=== PATIENT | male | born 1955 | race Caucasian/White ===

== ENCOUNTER 2016-05-27 00:38 | Inpatient (IN) | payer BC ==
[~2016-05-27] VITALS: Ht 180.3 cm; Wt 91.0 kg
[2016-05-27 01:19] VITALS: BP 156/89; PULSE 90; TEMP 36.5; Ht 180.3 cm; Wt 91.0 kg
[2016-05-27] MEDS ORDERED: ONDANSETRON INJ 2 MG/ML 2 ML VIAL IV PRN (01:45)
[2016-05-27] MEDS ORDERED: MELO7.5T5 PO (01:52)
[2016-05-27] MEDS ORDERED: SODIUM CHLORIDE 0.9% 1000ML 1,000 ML IV SCH (02:00)
[2016-05-27] MEDS ORDERED: PATIENT'S ALLERGY INFO NEEDS ENTERED SCH (02:30)
--- NOTE | 2016-05-27 04:10 | History and Physical ---
History & Physical Date & Time of Service: May 27, 2016 at 04:04 Chief Complaint: Biliary Obstrucion Primary Care Physician: Daniel Conn D.O. History of Present Illness Source: patient Transfer from [facility] - biliary obstruction 61 y/o M Hx osteoarthritis only. Developed sharp epigastric pain which progressed over 2 days prompting him to visit the ER. He denies N/V od diarrhea. A CT was obtained which was consistent with biliary obstruction and the pt was transferred to [facility] for evaluation by a Feed Crusher. At the time of arrival he has intermittent abdominal pain and denies additional symptoms. Labs were notable for LFT and bilirubin elevation. 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 Social History Smoking Status: Former Smoker Allergies Coded Allergies: No Known Allergies (Unverified , 05/27/16) Home Medications Scheduled Meloxicam (Mobic), 7.5 MG PO BID Review of Systems Constitutional: No chills, No fever, No sweats Eyes: No eye pain, No worsening of vision ENT: No hearing loss, No nasal symptoms, No unusual epistaxis Respiratory: No cough, No sputum, No wheezing Cardiovascular: No PND, No chest pain, No orthopnea Abdomen: + nausea, + pain, No constipation, No diarrhea, No vomiting Musculoskeletal: + problem reported (chronic joint/muscle pain) Genitourinary - Male: No dysuria, No hematuria, No urinary frequency, No urinary urgency Neurologic: No memory loss, No paralysis, No weakness Psychiatric: No depression symptoms Endocrine: No fatigue Hematologic / Lymphatic: No abnormal bleeding/bruising Integumentary: No rash Allergic / Immunologic: No environmental allergies Physical Exam Vital Signs Date Time Temp Pulse Resp B/P Pulse Ox O2 Delivery O2 Flow Rate FiO2 05/27/16 01:19 36.5 90 18 156/89 Room Air 05/27/16 00:55 Room Air General Appearance: WD/WN, no apparent distress, + pertinent finding (Pleasant middle aged male - no distress) Head: normocephalic, atraumatic Eyes: normal inspection, PERRL, EOMI ENT: normal ENT inspection, pharynx normal Neck: supple, no adenopathy, thyroid normal, no JVD Respiratory/Chest: chest non-tender, lungs clear, normal breath sounds, no respiratory distress, no accessory muscle use Cardiovascular: regular rate, rhythm, no edema, no gallop, no JVD, no murmur, normal peripheral pulses Abdomen/GI: + pertinent finding (Tenderness and guarding RUG/epigastrium) Back: normal inspection, no CVA tenderness Extremities/Musculoskelatal: normal inspection, no calf tenderness, normal capillary refill Neurologic/Psych: staff field engineer II-XII nml as tested, no motor/sensory deficits, alert Skin: normal color, warm/dry, no rash Diagnostics Laboratory Results Results Past 24 Hours Test 05/27/16 01:42 Range/Units Tbili 3.8 Dbili 2.8 AST 515 ALT 607 AP 202 CBC/BMP WNL Diagnostic Radiology CT abdomen 1. Distended gallbladder 2. Dilated CBD 7mm, dilated hepatic duct 12mm 3.Two focal areas of wall thickening - mid-sigmoid - possible early diverticulitis 4. Scattered low-density areas w/in liver - likely cysts Impression Assessment and Plan 61 y/o M Hx osteoarthritis only. Developed sharp epigastric pain which progressed over 2 days prompting him to visit the ER. He denies N/V od diarrhea. A CT was obtained which was consistent with biliary obstruction and the pt was transferred to [facility] for evaluation by a Feed Crusher. At the time of arrival he has intermittent abdominal pain and denies additional symptoms. Labs were notable for LFT and bilirubin elevation. 1) Biliary obstruction - GI consulted - NPO - pain control as needed - IVF 2) Osteoarthritis - takes only Meloxicam which has been held Full code - SCDs pending GI eval Total time for this admit including review of labs/meds/imaging - discussion with attending at [facility], pt and - 35 min Level of Care Med/Surg Advanced Directives Existing Living Will: No Existing Power of Program Advisor: No Resuscitation Status FULL RESUSCITATION VTE Prophylaxis VTE Risk Assessment Done? Y/N: Yes Risk Level: Moderate Given or contraindicated: SCD's
[2016-05-27] MEDS: D5NSS + 20MEQ KCL 1,000 ML IV SCH ×3 (04:49→23:45)
[2016-05-27] MEDS: MoRPHine SULFATE 2 MG/ML CARP IV PRN ×4 (06:05→21:23)
[2016-05-27 06:55] VITALS: BP 134/70; PULSE 78; TEMP 36.7; O2SAT 94
[2016-05-27 07:23] VITALS: BP 111/72; PULSE 73; TEMP 36.6; O2SAT 95
[2016-05-27 07:25] LABS: BUN/CREATININE RATIO 12.1 (10-20); CALCIUM 8.4 mg/dl (8.5-10.1); CREATININE 0.97 mg/dl (0.60-1.40); MAGNESIUM 2.2 mg/dl (1.8-2.4); POTASSIUM 3.5 mmol/L (3.5-5.1)
[2016-05-27] MEDS ORDERED: INFLUENZA VIRUS QUAD VACCINE 0.5 ML SYR IM. ONE (08:00)
[2016-05-27] MEDS ORDERED: INFLUENZA ADMINISTRATION CHARGE ONE (08:00)
[2016-05-27 09:10] LABS: ACT87 HEP C IGG SCREEN** NEG (NEG)
[2016-05-27 12:13] LABS: AMYLASE 39 U/L (25-115)
--- NOTE | 2016-05-27 14:51 | GASTROINTESTINAL CONSULTATION ---
DATE OF CONSULTATION: 05/27/2016 DATE OF CONSULTATION: 05/27/2016. REFERRED BY: Dr. Harris. I was asked by Dr. Harris to consult on this gentleman for evaluation of abdominal pain and possible biliary obstruction. HISTORY OF PRESENT ILLNESS: The patient is a 62-year-old who for about 2 days has been experiencing severe epigastric discomfort. He thought it was reflux disease, but it did not get better. It is crampy and colicky in nature right in the epigastric area with no radiation. It is not associated with any dysphagia, nausea or vomiting. He feels it was brought on by a large meal. He has no prior episodes like this. He denies being told he had gallstones. He went to [facility] and they transferred him here because of elevated bilirubin. He had a CAT scan done as well at [place] which showed a dilated common bile duct. Currently, he is receiving morphine and feels that his pain has subsided, but not completely gone. He has noticed his urine has become dark. PAST MEDICAL HISTORY: I reviewed his medical records and past medical history and his past medical history is significant for osteoarthritis. He has had lumbar fusion and hardware in his back as well as nerve stimulator and right knee replacement. FAMILY HISTORY: He denies any family history of gastrointestinal disease. SOCIAL HISTORY: Significant for being a former smoker. ALLERGIES: He denies any drug allergies. OUTPATIENT MEDICATIONS: Include Mobic p.r.n. REVIEW OF SYSTEMS: As above, otherwise he denies any change in vision or hearing. He denies any icterus, though he has noticed some mild icteric jaundice. He denies any fevers, chills. Denies any productive cough, palpitations or chest pain. He has had no polyuria or polydipsia. He denies any rectal bleeding. He denies any seizure activity. He denies any joint swelling. He has had no change in mood or gait. He denies any easy bruising. PHYSICAL EXAMINATION: GENERAL: Reveals a gentleman lying in bed with his at bedside. VITAL SIGNS: Most recent temperature is 36.6, blood pressure is 111/72, pulse is 73. SKIN: Anicteric, but he has icteric sclerae. Mouth is clear of lesions. NECK: Supple, no adenopathy. CHEST: Clear. HEART: Regular rate and rhythm. ABDOMEN: Soft with good bowel sounds. He has some mild tenderness to deep palpation in the epigastric area, but no rebound and no masses, but good bowel sounds. EXTREMITIES: Warm, good distal pulses and no edema. NEUROLOGIC: He is grossly intact. Alert and oriented x3. LABORATORY DATA: Show a total bilirubin of 3.9 with a direct bilirubin of 2.7, AST of 295, ALT of 454, alkaline phosphatase of 178. Amylase and lipase are normal. IMPRESSION: A 61-year-old gentleman with biliary colic and objective data supporting this. It is reassuring that his amylase and lipase are normal, showing no evidence of pancreatitis. I think it is reasonable that he can have sips of liquids, but he should remain IV hydrated. At this point, it is unclear whether it would be safe to do an MRI since we do not know about his hardware in his back. He will need an ERCP. I do not perform them myself. This could most likely be done Sunday unless he becomes sick or shows evidence of cholangitis at that point he will need to be transferred to a center that does them, either [facility] or [place]. I have discussed this with the patient, the family and Dr. Harris. HITESH
[2016-05-27 15:41] VITALS: BP 119/74; PULSE 73; TEMP 36.4; O2SAT 92
[2016-05-27 16:00] VITALS: O2SAT 92
--- NOTE | 2016-05-27 20:02 | Hospitalist Progress Note ---
Hospitalist Progress Note Date of Service May 27, 2016. Subjective Pt evaluation today including: conversation w/ patient, conversation w/ family , physical exam, lab review, conversation w/ golf tournament consultant (GI), review of inpatient medication list PO Intake: NPO Pt admitted after midnight. Pt seen and examined, outside records from [facility] and old Records from [place] reviewed. Pt currently still with epigastric pain, no N/V/D. Did have a small amount of rectal bleeding this AM that was painless, no melena. LFTs still elevated about the same as at [place]. Question of his nerve stim implant and compatibility with MRI machine so no MRCP could be completed today. 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 No stones or pancreatitis seen on CT as per report. Constitutional: No fever Eyes: No problem reported ENT: No problem reported Respiratory: No shortness of breath Cardiovascular: No chest pain, No edema, No palpitations Abdomen: + GI bleeding, + pain, No constipation, No diarrhea, No nausea, No vomiting Musculoskeletal: + joint pain (chronic in fingers and thumbs, knees) Male : No problem reported Neurologic: No problem reported Psychiatric: No problem reported, No substance abuse Heme: No problem reported Endo: No problem reported Skin: + color change (jaundice) All Other Systems: Reviewed and Negative Objective Vital Signs Date Time Temp Pulse Resp B/P Pulse Ox O2 Delivery O2 Flow Rate FiO2 05/27/16 16:00 92 Room Air 05/27/16 15:41 36.4 73 18 119/74 92 Room Air 05/27/16 07:30 Room Air 05/27/16 07:23 36.6 73 17 111/72 95 Room Air 05/27/16 06:55 36.7 78 16 134/70 94 Room Air 05/27/16 01:19 36.5 90 18 156/89 Room Air 05/27/16 00:55 Room Air Physical Exam General Appearance: WD/WN, no apparent distress Eyes: + abnormal sclerae exam (icterus) ENT: hearing grossly normal, pharynx normal Neck: supple, no adenopathy, thyroid normal, no JVD, no carotid bruits, trachea midline Respiratory/Chest: lungs clear, normal breath sounds, no respiratory distress, no accessory muscle use Cardiovascular: regular rate, rhythm, no edema, no gallop, no JVD, no murmur Abdomen: normal bowel sounds, soft, + tenderness (in epigastric and RUQ region without guarding or rebound) Extremities: normal inspection, no pedal edema, no calf tenderness Neurologic/Psychiatric: alert, normal mood/affect, oriented x 3 Skin: warm/dry, no rash, + jaundice Lymphatic: no adenopathy Laboratory Results Last 24 Hours Test 05/27/16 05:52 05/27/16 05:58 Sodium Level 145 mmol/L Potassium Level 3.5 mmol/L Chloride Level 111 mmol/L Carbon Dioxide Level 28 mmol/L Anion Gap 6.0 mmol/L Blood Urea Nitrogen 12 mg/dl Creatinine 0.97 mg/dl Est Creatinine Clear Calc Drug Dose 89.9 ml/min Estimated GFR () 95.9 Estimated GFR (Non- 82.7 BUN/Creatinine Ratio 12.1 Random Glucose 103 mg/dl Calcium Level 8.4 mg/dl Magnesium Level 2.2 mg/dl Total Bilirubin 3.9 mg/dl Direct Bilirubin 2.7 mg/dl Aspartate Amino Transf (AST/SGOT) 295 U/L Alanine Aminotransferase (ALT/SGPT) 454 U/L Alkaline Phosphatase 178 U/L Total Protein 5.9 gm/dl Albumin 3.4 gm/dl Amylase Level 39 U/L Lipase 184 U/L Hepatitis C Antibody Screen NEG Hepatitis C Antibody NEG Assessment and Plan 61 y/o M Hx osteoarthritis, and lumbar fusion with nerve stimulator implant (no longer working as battery ). Developed sharp epigastric pain which progressed over 2 days prompting him to visit the ER. He denies N/V or diarrhea. A CT was obtained which was consistent with biliary obstruction and the pt was transferred to [facility] for evaluation by a Gas Fitter Helper. At the time of arrival he has intermittent abdominal pain and denies additional symptoms. Labs were notable for LFT and bilirubin elevation. 1) Biliary obstruction - CT abd/pel with CBD 7 mm and common hepatic duct dilated at 12 mm, no stones or cholecystitis, no pancreatitis, lipase and amylase normal but TBili 3.9 with high DBili, AST/ALT/ALK phos all elevated. Afebrile, no leukocytosis. GI consulted and recommend transfer out for ERCP if worsens through the weekend as not available this weekend, otherwise ERCP on Sunday -can take sips but continue IVFs -pain control as needed -follow LFTs daily -continue to track down records if possible on nerve stim so could possibly get MRCP -consider PUD as well given chronic Mobic use-ERCP will be helpful at assessing for this as well 2) Osteoarthritis - takes only Meloxicam which has been held Full code - SCDs
[2016-05-27 22:52] VITALS: BP 121/64; PULSE 72; TEMP 36.7; O2SAT 91
[2016-05-28] MEDS: MoRPHine SULFATE 2 MG/ML CARP IV PRN ×2 (07:40→12:54)
[2016-05-28 08:03] VITALS: BP 106/65; PULSE 65; TEMP 36.6; O2SAT 93
[2016-05-28 08:21] LABS: BASO % 0.2 %; BASO ABS # 0.01 K/uL (0-0.2); COMPLETE YES; EOS % 2.3 %; HEMATOCRIT 39.4 % (42-52); IG% 0.2 %; LYMPH % 14.2 %; LYMPH ABS # 0.79 K/uL (1.2-3.4); MEAN CELL VOLUME 88.9 fL (80-100); MEAN CORPUSCULAR HEMOGLOBIN 28.2 pg (25-34); MEAN CORPUSCULAR HGB CONC 31.7 g/dl (32-36); MEAN PLATELET VOLUME 10.1 fL (7.4-10.4); MONO % 11.3 %; NEUT % 71.8 %; PLATELET COUNT 171 K/uL (130-400); RED BLOOD COUNT 4.43 M/uL (4.7-6.1); WHITE BLOOD COUNT 5.58 K/uL (4.8-10.8)
[2016-05-28] MEDS: D5NSS + 20MEQ KCL 1,000 ML IV SCH ×2 (09:29→18:41)
[2016-05-28 09:31] LABS: BUN/CREATININE RATIO 14.5 (10-20); CALCIUM 8.2 mg/dl (8.5-10.1); CREATININE 0.69 mg/dl (0.60-1.40); POTASSIUM 4.1 mmol/L (3.5-5.1)
[2016-05-28 15:07] VITALS: BP 129/85; PULSE 63; TEMP 36.6; O2SAT 95
[2016-05-28 16:00] VITALS: O2SAT 95
--- NOTE | 2016-05-28 20:27 | Hospitalist Progress Note ---
Hospitalist Progress Note Date of Service May 28, 2016. Subjective Pt evaluation today including: conversation w/ patient, conversation w/ independent consultant (reviewed outside CT with Radiology on phone today, discussed case with GI Dr. Arellano and Dr. Miller) Abd pain is much better today but still present. He just took some morphine prior to me seein edda today. LFTs much improved. No more blood in stool. Constitutional: No fever Respiratory: No shortness of breath Cardiovascular: No chest pain Abdomen: + pain All Other Systems: Reviewed and Negative Objective Vital Signs Date Time Temp Pulse Resp B/P Pulse Ox O2 Delivery O2 Flow Rate FiO2 05/28/16 16:00 95 Room Air 05/28/16 15:07 36.6 63 18 129/85 95 Room Air 05/28/16 08:03 36.6 65 17 106/65 93 05/28/16 07:45 Room Air 05/27/16 23:45 Room Air 05/27/16 22:52 36.7 72 18 121/64 91 Room Air Physical Exam General Appearance: WD/WN, no apparent distress Eyes: normal inspection, sclerae normal Neck: trachea midline Respiratory/Chest: lungs clear, normal breath sounds, no respiratory distress, no accessory muscle use Cardiovascular: regular rate, rhythm, no edema, no murmur Abdomen: normal bowel sounds, soft, no organomegaly, + tenderness (minimal in RUQ w/p guarding or rebound) Extremities: non-tender, normal inspection, no pedal edema, no calf tenderness Neurologic/Psychiatric: alert, normal mood/affect, oriented x 3 Skin: normal color, warm/dry, no rash Laboratory Results Last 24 Hours Test 05/28/16 08:11 White Blood Count 5.58 K/uL Red Blood Count 4.43 M/uL Hemoglobin 12.5 g/dL Hematocrit 39.4 % Mean Corpuscular Volume 88.9 fL Mean Corpuscular Hemoglobin 28.2 pg Mean Corpuscular Hemoglobin Concent 31.7 g/dl Platelet Count 171 K/uL Mean Platelet Volume 10.1 fL Neutrophils (%) (Auto) 71.8 % Lymphocytes (%) (Auto) 14.2 % Monocytes (%) (Auto) 11.3 % Eosinophils (%) (Auto) 2.3 % Basophils (%) (Auto) 0.2 % Neutrophils # (Auto) 4.01 K/uL Lymphocytes # (Auto) 0.79 K/uL Monocytes # (Auto) 0.63 K/uL Eosinophils # (Auto) 0.13 K/uL Basophils # (Auto) 0.01 K/uL RDW Standard Deviation 46.7 fL RDW Coefficient of Variation 14.2 % Immature Granulocyte % (Auto) 0.2 % Immature Granulocyte # (Auto) 0.01 K/uL Sodium Level 146 mmol/L Potassium Level 4.1 mmol/L Chloride Level 115 mmol/L Carbon Dioxide Level 24 mmol/L Anion Gap 7.0 mmol/L Blood Urea Nitrogen 10 mg/dl Creatinine 0.69 mg/dl Est Creatinine Clear Calc Drug Dose 126.4 ml/min Estimated GFR () 117.1 Estimated GFR (Non- 101.0 BUN/Creatinine Ratio 14.5 Random Glucose 108 mg/dl Calcium Level 8.2 mg/dl Magnesium Level 2.0 mg/dl Total Bilirubin 0.9 mg/dl Direct Bilirubin 0.4 mg/dl Aspartate Amino Transf (AST/SGOT) 89 U/L Alanine Aminotransferase (ALT/SGPT) 279 U/L Alkaline Phosphatase 164 U/L Total Protein 5.4 gm/dl Albumin 3.0 gm/dl Amylase Level 39 U/L Lipase 125 U/L Assessment and Plan 61 y/o M Hx osteoarthritis, and lumbar fusion with nerve stimulator implant (no longer working as battery ). Developed sharp epigastric pain which progressed over 2 days prompting him to visit the ER. He denies N/V or diarrhea. A CT was obtained which was consistent with biliary obstruction and the pt was transferred to [facility] for evaluation by a Machine Heel Sprayer. At the time of arrival he has intermittent abdominal pain and denies additional symptoms. Labs were notable for LFT and bilirubin elevation. 1) Biliary obstruction - CT abd/pel with CBD 7 mm and common hepatic duct dilated at 12 mm as per outside report. Radiology here confirms CBD 10 mm dilated and possible tiny calcification adjacent to or in sphincter (possible stone passing), no cholecystitis, no pancreatitis, lipase and amylase normal but TBili 3.9 with high DBili, AST/ALT/ALK phos all elevated. Afebrile, no leukocytosis. Unable to get MRCP due to nerve stim in back of unknown make/model (unknown if MR compatible)-requested records from [facility] but operative report from 12 yrs ago not included. Most likely cholelithiasis/choledocholithiasis GI consulted and recommended possible ERCP on Sun with Dr. MILLER if can be add on case. But, if labs and clinical picture continue to improve, consider only repeating CT abd/pel on Sunday to see if dilatation is improved in ducts. Will await GI's recommendation on Sunday and keep NPO after midnight for ERCP just in case. LFTs trending downward and pain much improved. -can have clears today, NPO after midnight -pain control as needed -follow LFTs daily -continue to track down records if possible on nerve stim so could possibly get MRCP -consider PUD as well given chronic Mobic use-ERCP will be helpful at assessing for this as well 2) Osteoarthritis - takes only Meloxicam which has been held Full code - SCDs
[2016-05-28 23:45] VITALS: BP 156/85; PULSE 68; TEMP 36.4; O2SAT 94
--- NOTE | 2016-05-29 00:59 | GASTROINTESTINAL CONSULTATION ---
DATE OF CONSULTATION: 05/28/2016 TIME: 09:15 p.m. CHIEF COMPLAINT: Abnormal liver function tests, abnormal CT imaging, right upper quadrant epigastric pain. HISTORY OF PRESENT ILLNESS: I was contacted by Dr. Harris earlier this afternoon regarding this pleasant 61-year-old male who on while at work, experienced epigastric pain that was intense in nature. This was sudden onset and lingered throughout the day. He had tried some liquid antacids and acid blockers, but this incompletely relieved the symptoms. These symptoms continued on Sunday and throughout the day, and eventually became intolerant, and he presented to [facility] which is nearby his home. The patient denies any radiation to the back or into the shoulder. The foods that caused the pain to persist on Sunday was a BLT sandwich. The patient has no prior history or knowledge of gallstone, history of pancreatitis, peptic ulcer disease and takes Mobic for chronic skeletomuscular pain. The patient also has had spinal rods and a nerve stimulator unit that was placed about 12 years ago. The specific type, brand and model number is unknown regarding MR compatibility. The patient continued with pain yesterday, Sunday; however, today his pain began to resolve. PAST MEDICAL HISTORY: Significant for osteoarthritis. There was no nausea or vomiting. He also had a right knee replacement, lumbar fusion with hardware replacement. FAMILY HISTORY: Noncontributory. SOCIAL HISTORY: The patient himself denies tobacco or alcohol usage, works in a [employer] plant. The patient did smoke in the past. He is . HOME MEDICATIONS: Include only meloxicam (Mobic 7.5 mg twice daily). ALLERGIES: He has no known drug allergies. REVIEW OF SYSTEMS: Otherwise noncontributory based on 14-point exam. The patient denies any nausea, vomiting, hematemesis, coffee-ground emesis, melena or bright red blood per rectum. PHYSICAL EXAMINATION: VITAL SIGNS: On admission, was afebrile at 36.5, BP 156/89, heart rate 90, respirations 18. GENERAL: At the present time, the patient is awake, alert and oriented x3 and resting comfortably in bed. He has had some liquid throughout the day which was not bothersome to him. Essentially, his pain has completely resolved and he is back to baseline. Importantly, there was no description of recent weight loss and the patient has no prior history of any similar attacks of pain that he can recall. HEENT: Sclerae are anicteric. Oral mucosa moist. HEART: Normal S1, S2. LUNGS: Clear to auscultation. ABDOMEN: Soft, nontender, nondistended with good bowel sounds. No rebound or guarding. I do not appreciate hepatosplenomegaly. EXTREMITIES: Without clubbing, cyanosis or edema. RECTAL: Deferred at this time. LABORATORY STUDIES: At the present time show white count today at 8:00 this morning of 5.58, hemoglobin 12.5, hematocrit 39.4, MCV 89, platelets 171,000. Serum chemistries this morning at 5:52 a.m., BUN and creatinine were normal at 12 and 0.9, potassium 3.5, random glucose 103, magnesium 2.2. His total bilirubin this morning was 3.9, direct 2.7, AST 295, ALT 454, alk phos 178, total protein 5.9, albumin 3.4. Amylase and lipase this morning were 39 and 184 respectively. The prior labs were from 5:52 a.m. on May 27. Today's labs show resolving liver tests with a total bilirubin of 0.9, direct of 0.4, AST is down to 89, ALT to 279, alk phos slightly down at 164. Amylase and lipase remain normal at 39 and 125. The imaging study report had suggested that there were dilated intrahepatic ducts and common hepatic duct, although no obvious filling defect or masses were seen. I did speak with Dr. Harris regarding this patient's request and asked them to review the actual films with radiology and the unofficial report communicated to me through Dr. Harris was that the common bile duct was 10 mm with an (intact gallbladder). There was no definite mass or stones in the duct. There was evidence of mild intrahepatic dilation and a 2-3 mm calcification that could either represent a stone in or adjacent to the sphincter with ERCP or perhaps EUS recommended. IMPRESSION: Mr Reagan with acute onset since of epigastric pain that persisted through Sunday. Today, the pain is nearly resolved and yesterday's liver function tests that were elevated are now trending downward. Review of the outside CT scan by radiology suggested a prominent extrahepatic common bile duct of 10 mm and perhaps a calcified filling defect either distally or near the region of the sphincter. There is no chronic weight loss and the fact that this was accompanied by a sudden onset of pain without fever or chills and is resolving would make the passage of a stone more likely (symptomatic choledocholithiasis or sludge). Unfortunately, with the patient's nerve stimulator unit in place, without its brand and model number, the MR compatibility is not known and therefore MRI may not be possible. At this point, we would observe patient's symptoms overnight and follow with labs tomorrow. If he continues to do well, then it may be advisable to first approach with an endoscopic ultrasound to see if there are any filling defects appreciated in the biliary system and gallbladder. If so, then endoscopic retrograde cholangiopancreatography would be helpful. I have attempted to review the actual CT disc, however this will not open on the current computer and have asked radiology to download it and give a formal interpretation of the study. If there appears to be a filling defect on the CT imaging, the possibilities are that the stone may have passed into the duodenum in the interim given the patient's resolution of pain and resolving liver function tests or may have moved back up the bile duct in a nonobstructive fashion and therefore, interrogation of the biliary tree, I believe is still prudent. We will also look to see availability for endoscopic exams tomorrow for Mr. Reagan. However, this unfortunately will not be available until the late afternoon or early evening for me. All questions are answered. Thank you for allowing me to participate in this pleasant gentleman's care. HITESH
[2016-05-29 05:48] LABS: BASO % 0.2 %; BASO ABS # 0.01 K/uL (0-0.2); COMPLETE YES; EOS % 3.1 %; HEMATOCRIT 39.1 % (42-52); LYMPH % 18.8 %; LYMPH ABS # 1.15 K/uL (1.2-3.4); MEAN CELL VOLUME 87.9 fL (80-100); MEAN CORPUSCULAR HEMOGLOBIN 28.5 pg (25-34); MEAN CORPUSCULAR HGB CONC 32.5 g/dl (32-36); MEAN PLATELET VOLUME 10.8 fL (7.4-10.4); MONO % 11.9 %; PLATELET COUNT 181 K/uL (130-400); RED BLOOD COUNT 4.45 M/uL (4.7-6.1); WHITE BLOOD COUNT 6.11 K/uL (4.8-10.8)
[2016-05-29 06:17] LABS: BUN/CREATININE RATIO 9.1 (10-20); CALCIUM 8.1 mg/dl (8.5-10.1); CREATININE 0.7 mg/dl (0.60-1.40); MAGNESIUM 1.8 mg/dl (1.8-2.4); POTASSIUM 3.8 mmol/L (3.5-5.1)
[2016-05-29 07:22] VITALS: BP 167/92; PULSE 82; TEMP 36.5; O2SAT 94
[2016-05-29 07:40] VITALS: BP 145/93
[2016-05-29] MEDS: SODIUM CHLOR 0.45% + 20MEQ KCL 1,000 ML IV SCH ×2 (10:13→22:22)
--- NOTE | 2016-05-29 13:17 | Hospitalist Progress Note ---
Hospitalist Progress Note Date of Service May 29, 2016. (Marianela Sumner PA-C) Subjective Pt evaluation today including: conversation w/ patient, conversation w/ family , physical exam, chart review, lab review, review of studies, review of inpatient medication list Patient currently denies any abdominal pain. He has been pain-free over the last day. Denies any nausea. One small running bowel movement this morning. No fever or chills. Additional Comments: 6 system review negative. Please see pertinent positives in the history of present illness section. (Marianela Sumner PA-C) Objective Vital Signs Date Time Temp Pulse Resp B/P Pulse Ox O2 Delivery O2 Flow Rate FiO2 05/29/16 07:45 Room Air 05/29/16 07:40 145/93 05/29/16 07:22 36.5 82 16 167/92 94 Room Air 05/28/16 23:45 36.4 68 18 156/85 94 Room Air 05/28/16 23:35 Room Air 05/28/16 16:00 95 Room Air 05/28/16 15:07 36.6 63 18 129/85 95 Room Air (Marianela Sumner PA-C) Physical Exam General Appearance: no apparent distress Eyes: EOMI Neck: no JVD Respiratory/Chest: lungs clear Cardiovascular: regular rate, rhythm Abdomen: normal bowel sounds, non tender, soft Extremities: non-tender, no pedal edema Neurologic/Psychiatric: no motor/sensory deficits, oriented x 3 Skin: warm/dry (Marianela Sumner PA-C) Laboratory Results 05/29/16 05:38 Red Blood Count 4.45, Mean Corpuscular Volume 87.9, Mean Corpuscular Hemoglobin 28.5, Mean Corpuscular Hemoglobin Concent 32.5, Mean Platelet Volume 10.8, Neutrophils (%) (Auto) 66.0, Lymphocytes (%) (Auto) 18.8, Monocytes (%) (Auto) 11.9, Eosinophils (%) (Auto) 3.1, Basophils (%) (Auto) 0.2, Neutrophils # (Auto ) 4.03, Lymphocytes # (Auto) 1.15, Monocytes # (Auto) 0.73, Eosinophils # (Auto ) 0.19, Basophils # (Auto) 0.01 05/29/16 05:38 Test 05/29/16 05:38 White Blood Count 6.11 K/uL (4.8-10.8) Red Blood Count 4.45 M/uL (4.7-6.1) Hemoglobin 12.7 g/dL (14.0-18.0) Hematocrit 39.1 % (42-52) Mean Corpuscular Volume 87.9 fL (80-100) Mean Corpuscular Hemoglobin 28.5 pg (25-34) Mean Corpuscular Hemoglobin Concent 32.5 g/dl (32-36) Platelet Count 181 K/uL (130-400) Mean Platelet Volume 10.8 fL (7.4-10.4) Neutrophils (%) (Auto) 66.0 % Lymphocytes (%) (Auto) 18.8 % Monocytes (%) (Auto) 11.9 % Eosinophils (%) (Auto) 3.1 % Basophils (%) (Auto) 0.2 % Neutrophils # (Auto) 4.03 K/uL (1.4-6.5) Lymphocytes # (Auto) 1.15 K/uL (1.2-3.4) Monocytes # (Auto) 0.73 K/uL (0.11-0.59) Eosinophils # (Auto) 0.19 K/uL (0-0.5) Basophils # (Auto) 0.01 K/uL (0-0.2) RDW Standard Deviation 44.3 fL (36.4-46.3) RDW Coefficient of Variation 13.7 % (11.5-14.5) Immature Granulocyte % (Auto) 0.0 % Immature Granulocyte # (Auto) 0.00 K/uL (0.00-0.02) Anion Gap 8.0 mmol/L (3-11) Est Creatinine Clear Calc Drug Dose 124.6 ml/min Estimated GFR () 116.4 Estimated GFR (Non- 100.4 BUN/Creatinine Ratio 9.1 (10-20) Calcium Level 8.1 mg/dl (8.5-10.1) Magnesium Level 1.8 mg/dl (1.8-2.4) Total Bilirubin 0.7 mg/dl (0.2-1) Direct Bilirubin 0.3 mg/dl (0-0.2) Aspartate Amino Transf (AST/SGOT) 54 U/L (15-37) Alanine Aminotransferase (ALT/SGPT) 218 U/L (12-78) Alkaline Phosphatase 149 U/L (45-117) Total Protein 5.4 gm/dl (6.4-8.2) Albumin 2.9 gm/dl (3.4-5.0) Last 24 Hours Test 05/29/16 05:38 White Blood Count 6.11 K/uL Red Blood Count 4.45 M/uL Hemoglobin 12.7 g/dL Hematocrit 39.1 % Mean Corpuscular Volume 87.9 fL Mean Corpuscular Hemoglobin 28.5 pg Mean Corpuscular Hemoglobin Concent 32.5 g/dl Platelet Count 181 K/uL Mean Platelet Volume 10.8 fL Neutrophils (%) (Auto) 66.0 % Lymphocytes (%) (Auto) 18.8 % Monocytes (%) (Auto) 11.9 % Eosinophils (%) (Auto) 3.1 % Basophils (%) (Auto) 0.2 % Neutrophils # (Auto) 4.03 K/uL Lymphocytes # (Auto) 1.15 K/uL Monocytes # (Auto) 0.73 K/uL Eosinophils # (Auto) 0.19 K/uL Basophils # (Auto) 0.01 K/uL RDW Standard Deviation 44.3 fL RDW Coefficient of Variation 13.7 % Immature Granulocyte % (Auto) 0.0 % Immature Granulocyte # (Auto) 0.00 K/uL Sodium Level 147 mmol/L Potassium Level 3.8 mmol/L Chloride Level 113 mmol/L Carbon Dioxide Level 26 mmol/L Anion Gap 8.0 mmol/L Blood Urea Nitrogen 6 mg/dl Creatinine 0.70 mg/dl Est Creatinine Clear Calc Drug Dose 124.6 ml/min Estimated GFR () 116.4 Estimated GFR (Non- 100.4 BUN/Creatinine Ratio 9.1 Random Glucose 94 mg/dl Calcium Level 8.1 mg/dl Magnesium Level 1.8 mg/dl Total Bilirubin 0.7 mg/dl Direct Bilirubin 0.3 mg/dl Aspartate Amino Transf (AST/SGOT) 54 U/L Alanine Aminotransferase (ALT/SGPT) 218 U/L Alkaline Phosphatase 149 U/L Total Protein 5.4 gm/dl Albumin 2.9 gm/dl (Marianela Sumner, PA-C) Assessment and Plan 61 y/o M Hx osteoarthritis, and lumbar fusion with nerve stimulator implant (no longer working as battery ). Developed sharp epigastric pain which progressed over 2 days prompting him to visit the ER. He denies N/V or diarrhea. A CT was obtained which was consistent with biliary obstruction and the pt was transferred to [facility] for evaluation by a [employer]airer. At the time of arrival he has intermittent abdominal pain and denies additional symptoms. Labs were notable for LFT and bilirubin elevation. Biliary obstruction - CT abd/pel with CBD 7 mm and common hepatic duct dilated at 12 mm as per outside report. Radiology here confirms CBD 10 mm dilated and possible tiny calcification adjacent to or in sphincter (possible stone passing) , no cholecystitis, no pancreatitis--> LFTs continue to improve Unable to get MRCP due to nerve stim in back of unknown make/model (unknown if MR compatible)-requested records from [facility] but operative report from 12 yrs ago not included. Most likely cholelithiasis/choledocholithiasis EUS +/- ERCP at [address] Clemens Osteoarthritis - takes only Meloxicam which has been held Mild hypernatremia -Change IV fluids to NS + 20 mEq KCl @ 100 cc/hr DVT prophylaxis -TEDS, SCDs Full code (Marianela Sumner, PAArnoldoC) PA Physician Supervision Note: I interviewed and examined the patient. Discussed with Marianela Sumner PAC and agree with findings and plan as documented in the note. Any exceptions or clarifications are listed here: None Pt is awaiting ercp eus, is now mostly symptom free with improved lab studies vss abd is soft and non tender studies to determine cause of dilated CBD Documented By: Shon Han (Shon Han M.D.)
[2016-05-29 16:00] VITALS: BP 147/83; PULSE 61; TEMP 36.7; O2SAT 95
[2016-05-29] MEDS ORDERED: GLYCOPYRROLATE INJ 0.2 MG/ML VIAL ONE (17:35)
[2016-05-29] MEDS ORDERED: PHENYLEPHRINE HCL INJ 10 MG/ML VIAL ONE (17:35)
[2016-05-29] MEDS ORDERED: ROCURONIUM BROMIDE 10 MG/ML 5 ML VIAL ONE (17:35)
[2016-05-29] MEDS ORDERED: DEXAMETHASONE SOD INJ 4 MG/ML VIAL ONE (17:35)
[2016-05-29] MEDS ORDERED: ONDANSETRON INJ 2 MG/ML 2 ML VIAL ONE (17:35)
[2016-05-29] MEDS ORDERED: SUCCINYLCHOLINE CHLORIDE 20 MG/ML 10 ML VIAL IV ONE (17:35)
[2016-05-29] MEDS ORDERED: MIDAZOLAM HCL 1 MG/ML 2ML VIAL ONE (17:35)
[2016-05-29] MEDS ORDERED: LIDOCAINE HCL 2% 2 ML VIAL (20MG/ML) ONE (17:35)
[2016-05-29] MEDS ORDERED: NEOSTIGMINE METHYLSULFATE 5 MG/5 ML SYR ONE (17:35)
[2016-05-29] MEDS ORDERED: FENTANYL CITRATE INJ 50 MCG/1 ML 2 ML VIAL ONE (17:35)
[2016-05-29] MEDS ORDERED: PROPOFOL IV EMULSION 10 MG/ML 20 ML VIAL IV ONE (17:35)
[2016-05-29] MEDS ORDERED: EpHEDrine SULFATE INJ 50 MG/ML AMP ONE (17:35)
--- NOTE | 2016-05-29 17:56 | History & Physical Bridge Note ---
H&P Re-Evaluation Bridge Note: I have examined the patient, reviewed the History & Physical and in the interval since the performance of the History & Physical I have noted the following changes of clinical significance: No changes noted Consent obtaine for EUS and ERCP after risks benefits and alternatives discussed with patient. Pt agrees to proceed. Pysical exam benign and unchanged from last evening @ 9:00 PM. Abd soft NT/ND + BS
[2016-05-29] MEDS ORDERED: INDOMETHACIN 50 MG SUPP PR ONE (19:34)
--- NOTE | 2016-05-29 21:24 | DIAGNOSTIC IMAGING REPORT ---
KUB during ERCP CLINICAL HISTORY: ERCP COMPARISON STUDY: CT scan dated 05/26/2016 FLUOROSCOPY TIME: 1061 seconds. FINDINGS: A single fluoroscopic spot images provided for interpretation. This reveals postsurgical changes within the lumbar spine. There is a right upper quadrant stent. The orientation favors a pancreaticoduodenal stent although it is conceivable this represents a biliary enteric stent. IMPRESSION: A right upper quadrant stent is visualized. Electronically signed by: Thiago Esposito M.D. 05/29/2016 9:23 PM Dictated Date/Time: 05/29/2016 9:20 PM
--- NOTE | 2016-05-29 21:29 | GI REPORT ---
Procedure Date: 05/29/2016 6:05 PM THIS REPORT HAS BEEN AMENDED Addendum Number: 1 Addendum Date: 05/29/2016 10:00:44 PM EUS insert/withdrawal time 18:19 to 18:55. Procedure: Upper EUS Indications: Common bile duct dilation (acquired) seen on CT scan Medicines: General Anesthesia Complications: No immediate complications. Estimated blood loss: None. Estimated Blood Loss: Estimated blood loss: none. Procedure: Pre-Anesthesia Assessment: - Prior to the procedure, a History and Physical was performed, and patient medications and allergies were reviewed. The patient's tolerance of previous anesthesia was also reviewed. The risks and benefits of the procedure and the sedation options and risks were discussed with the patient. All questions were answered, and informed consent was obtained. Prior Anticoagulants: The patient has taken no previous anticoagulant or antiplatelet agents. ASA Grade Assessment: II - A patient with mild systemic disease. After reviewing the risks and benefits, the patient was deemed in satisfactory condition to undergo the procedure. After obtaining informed consent, the endoscope was passed under direct vision. Throughout the procedure, the patient's blood pressure, pulse, and oxygen saturations were monitored continuously. The Endosonoscope was introduced through the mouth, and advanced to the area of papilla. The Endosonoscope was introduced through the mouth, and advanced to the second part of duodenum. The upper EUS was accomplished without difficulty. The patient tolerated the procedure well. Findings: Endoscopic Finding : The examined esophagus was normal. Patchy mildly erythematous mucosa without bleeding was found in the gastric antrum. Patchy moderately erythematous mucosa without active bleeding and with no stigmata of bleeding was found in the duodenal bulb and in the second part of the duodenum. Localized moderate inflammation characterized by congestion (edema) and erythema was found in the ampulla. Endosonographic Finding : The esophagus, stomach and duodenum and adjacent structures were visualized endosonographically. There was no sign of significant endosonographic abnormality in the esophagus. No pathologic lymphadenopathy was identified. Endosonographic images of the stomach were unremarkable. No pathologic lymphadenopathy was identified. There was no sign of significant endosonographic abnormality in the ampulla, in the duodenal bulb and in the second portion of the duodenum. No pathologic lymphadenopathy was identified. Four stones were visualized endosonographically in the gallbladder. The stones were oval. They were hyperechoic and characterized by shadowing. Moderate hyperechoic material consistent with sludge was visualized endosonographically in the common bile duct and in the middle third of the main bile duct. he bile duct was 13 mm in diameter. There was no sign of significant endosonographic abnormality in the left lobe of the liver. Homogeneous parenchyma and no pathologic lymphadenopathy were identified. There was no sign of significant endosonographic abnormality in the pancreatic head, in the pancreatic body, in the pancreatic tail and in the main pancreatic duct. The pancreatic duct measured up to 2 mm in diameter. No pathologic lymphadenopathy, no masses, the pancreatic duct was regular in contour. Impression: - Normal esophagus. - Erythematous mucosa in the antrum. - Erythematous duodenopathy. - Acute duodenitis. - There was no sign of significant pathology in the esophagus. - Endosonographic images of the stomach were unremarkable. - There was no sign of significant pathology in the ampulla, in the duodenal bulb and in the second portion of the duodenum. - Four stones were visualized endosonographically in the gallbladder. - Hyperechoic material consistent with sludge was visualized endosonographically in the common bile duct and in the middle third of the main bile duct. - There was no evidence of significant pathology in the left lobe of the liver. - There was no sign of significant pathology in the pancreatic head, in the pancreatic body, in the pancreatic tail and in the main pancreatic duct. - No specimens collected. Recommendation: - Perform an ERCP today. MD Rafi Zavaleta MD 05/29/2016 9:29:07 PM This report has been signed electronically. Note Initiated On: 05/29/2016 6:05 PM I attest to the content of the Intraoperative Record and orders documented therein, exceptions below MD Rafi Zavaleta MD 05/29/2016 10:01:18 PM This report has been signed electronically.
[2016-05-29] MEDS ORDERED: HYDROmorphone INJ 1 MG/ML SYR IV PRN (21:30)
[2016-05-29] MEDS ORDERED: ONDANSETRON INJ 2 MG/ML 2 ML VIAL IV PRN (21:30)
[2016-05-29] MEDS ORDERED: FENTANYL CITRATE INJ 50 MCG/1 ML 2 ML VIAL IV PRN (21:30)
[2016-05-29] MEDS ORDERED: PROMETHAZINE HCL INJ 6.25 MG in SODIUM CHLORIDE 0.9% 50ML 50 ML IV PRN (21:30)
[2016-05-29] MEDS ORDERED: ATROPINE SULFATE 0.1 MG/ML 5ML SYR IV PRN (21:30)
[2016-05-29] MEDS ORDERED: EpHEDrine SULFATE INJ 50 MG/ML AMP IV PRN (21:30)
--- NOTE | 2016-05-29 21:40 | Anesthesiology Progress Note ---
Anesthesia Post Op Note Date & Time May 29, 2016 at 21:40 Vital Signs Pain Intensity: 0 Vital Signs Past 12 Hours Date Time Temp Pulse Resp B/P Pulse Ox O2 Delivery O2 Flow Rate FiO2 05/29/16 21:25 74 18 94/49 95 Nasal Cannula 2 05/29/16 21:15 76 18 100/52 95 Room Air 05/29/16 21:08 36.9 80 18 122/70 94 Room Air 05/29/16 16:00 36.7 61 18 147/83 95 Room Air 05/29/16 15:55 Room Air Notes Mental Status: alert / awake / arousable, participated in evaluation Pt Amnestic to Procedure: Yes Nausea / Vomiting: adequately controlled Pain: adequately controlled Airway Patency, RR, SpO2: stable & adequate BP & HR: stable & adequate Hydration State: stable & adequate Anesthetic Complications: no major complications apparent
--- NOTE | 2016-05-29 22:00 | GI REPORT ---
Procedure Date: 05/29/2016 7:02 PM Procedure: ERCP Indications: Abnormal abdominal CT, Biliary dilation on Computed Tomogram Scan, Abnormal liver function test Medicines: General Anesthesia. Indocin 2 x 50 mg suppositiroies given rectally duirng procedure. Cipro 400 mg IV Complications: No immediate complications. Estimated blood loss: None Estimated Blood Loss: Estimated blood loss: none. Procedure: Pre-Anesthesia Assessment: - Prior to the procedure, a History and Physical was performed, and patient medications and allergies were reviewed. The patient's tolerance of previous anesthesia was also reviewed. The risks and benefits of the procedure and the sedation options and risks were discussed with the patient. All questions were answered, and informed consent was obtained. Prior Anticoagulants: The patient has taken no previous anticoagulant or antiplatelet agents. ASA Grade Assessment: III - A patient with severe systemic disease. After reviewing the risks and benefits, the patient was deemed in satisfactory condition to undergo the procedure. After obtaining informed consent, the scope was passed under direct vision. Throughout the procedure, the patient's blood pressure, pulse, and oxygen saturations were monitored continuously. The scope was introduced through the mouth, and advanced to the duodenum and used to inject contrast into the ventral pancreatic duct. The ERCP was unusually difficult. Successful completion of the procedure was aided by change to 5-4-3 catherter with eventaul wire canulation of PD followed by stent. The patient tolerated the procedure well. Findings: The retail analyst film was normal. The scope was advanced to a normal major papilla in the descending duodenum. Examination of the pharynx, larynx and associated structures, and upper GI tract was normal. The major papilla was edematous. The major papilla was erythematous. The major papilla was bulging. The bile duct could not be cannulated with the short-nosed traction sphincterotome and 3-4-5 taper-tip cannula. A straight Roadrunner wire was passed into the ventral pancreatic duct. One 5 Fr by 5 cm temporary plastic pancreatic stent with a full external pigtail and no internal flaps was placed 5 cm into the ventral pancreatic duct to help direct cannulation into biliary systen. Clear fluid flowed through the stent(s). The stent was in good position. The bile duct could not be cannulated with the short-nosed traction sphincterotome and 3-4-5 taper-tip cannula as well as wire canulation. A 3 mm biliary sphincterotomy was made with a needle knife over a pancreatic stent using ERBE electrocautery. There was no post-sphincterotomy bleeding. Scant bile seen but attempts to cannulate with wire or devices were unsuccessful. Canulation of biliary system not achieved. PD stent placed. No samples taken. ERCP insert/withdrawal time (19:10-21:00). Impression: - The major papilla appeared edematous. - The major papilla appeared erythematous. - The major papilla appeared to be bulging. - One temporary plastic pancreatic stent was placed into the ventral pancreatic duct. - A precut sphincterotomy was performed. Biliary canulation was unsuccesssful. Recommendation: - NPO. IVF with Lactated Ringers - Cipro (ciprofloxacin) 400 mg IV q 12 hr for 7 days. Lacated ringers at 125 cc/hr x 3 liters - Will need PD stent removed in 5 days - Options include repeat ERCP in 5- 7 days, IR attempt at [place] or repeat ERCP at [facility] - Refer to a surgeon. - For eventual cholecycstectomy. MD Rafi Zavaleta MD 05/29/2016 10:00:11 PM This report has been signed electronically. Note Initiated On: 05/29/2016 7:02 PM I attest to the content of the Intraoperative Record and orders documented therein, exceptions below
[2016-05-29] MEDS ORDERED: CIPROFLOXACIN 400MG / 200ML D5W IV STA (22:03)
[2016-05-29 22:25] VITALS: O2SAT 96
[2016-05-29] MEDS ORDERED: CIPROFLOXACIN / D5W 400 MG IV ONE (22:30)
[2016-05-29] MEDS ORDERED: NURSING VERBAL MED ORDER ONE (22:30)
[2016-05-29] MEDS: LACTATED RINGER'S 1000ML 1,000 ML IV SCH (22:33)
[2016-05-29 22:55] VITALS: BP 131/73; PULSE 87; TEMP 36.4; O2SAT 93
[2016-05-29] MEDS ORDERED: CIPROFLOXACIN / D5W 400 MG in PREMIXED IN D5W 200 ML IV ONE (23:00)
[2016-05-29 23:25] VITALS: BP 110/64; PULSE 75; TEMP 36.4; O2SAT 98
[2016-05-30] VITALS (11 sets, daily range): BP systolic 91–118; BP diastolic 53–72; PULSE 64–77; TEMP 36.4–37.8; O2SAT 91–97
[2016-05-30] MEDS: SODIUM CHLOR 0.45% + 20MEQ KCL 1,000 ML IV SCH (05:58)
[2016-05-30] MEDS: CIPROFLOXACIN / D5W 400 MG in PREMIXED IN D5W 200 ML IV SCH ×2 (05:59→16:57)
[2016-05-30 06:10] LABS: BASO % 0.1 %; BASO ABS # 0.01 K/uL (0-0.2); COMPLETE YES; EOS % 0.2 %; HEMATOCRIT 39.1 % (42-52); IG% 0.4 %; LYMPH % 10.1 %; LYMPH ABS # 0.84 K/uL (1.2-3.4); MEAN CELL VOLUME 87.9 fL (80-100); MEAN PLATELET VOLUME 11.2 fL (7.4-10.4); MONO % 9.6 %; NEUT % 79.6 %; PLATELET COUNT 198 K/uL (130-400); RED BLOOD COUNT 4.45 M/uL (4.7-6.1); WHITE BLOOD COUNT 8.33 K/uL (4.8-10.8)
[2016-05-30 06:44] LABS: BUN/CREATININE RATIO 15.1 (10-20); CALCIUM 8.2 mg/dl (8.5-10.1); CREATININE 0.77 mg/dl (0.60-1.40); POTASSIUM 3.9 mmol/L (3.5-5.1)
--- NOTE | 2016-05-30 07:54 | Anesthesiology Progress Note ---
Anesthesia Post Op Note Date & Time May 30, 2016 at 07:54 Vital Signs Pain Intensity: 0.0 Vital Signs Past 12 Hours Date Time Temp Pulse Resp B/P Pulse Ox O2 Delivery O2 Flow Rate FiO2 05/30/16 07:45 36.6 71 18 113/68 94 Room Air 05/30/16 04:44 114/66 05/30/16 03:55 36.5 73 16 91/53 95 Room Air 05/30/16 01:25 36.4 76 16 117/72 95 Nasal Cannula 2.0 05/30/16 00:25 36.4 75 16 110/64 97 Nasal Cannula 2.0 05/29/16 23:50 Nasal Cannula 2.0 05/29/16 23:25 36.4 75 16 110/64 98 Nasal Cannula 2.0 05/29/16 22:55 36.4 87 17 131/73 93 Nasal Cannula 2.0 05/29/16 22:25 96 Nasal Cannula 2.0 05/29/16 21:50 36.5 65 18 101/60 95 Nasal Cannula 2 05/29/16 21:35 36.5 61 18 111/62 95 Nasal Cannula 2 05/29/16 21:25 74 18 94/49 95 Nasal Cannula 2 05/29/16 21:15 76 18 100/52 95 Room Air 05/29/16 21:08 36.9 80 18 122/70 94 Room Air Notes Mental Status: alert / awake / arousable, participated in evaluation Pt Amnestic to Procedure: Yes Nausea / Vomiting: adequately controlled Pain: adequately controlled Airway Patency, RR, SpO2: stable & adequate BP & HR: stable & adequate Hydration State: stable & adequate Anesthetic Complications: no major complications apparent
[2016-05-30] MEDS: LACTATED RINGER'S 1000ML 1,000 ML IV SCH ×2 (08:57→13:46)
--- NOTE | 2016-05-30 11:05 | Medical Consult ---
Consultation Date of Consultation: May 30, 2016. Attending Physician: Shon Han M.D. History of Present Illness 61 y/o male with epigastric pain that began last while at work. No previous abdominal pain, nausea or fatty food intolerance. Seen at [place] and transferred to [facility] for elevated bilirubin/CBD dilation. Had ERCP yesterday with sphincterotomy and stenting but was not able to cannulate duct for sweeping. EUS showed sludge in CBD. Today patient denies pain or nausea, he is hungry. Past Medical/Surgical History Medical history: arthritis Surgical history: TKA spinal fusion and nerve stimulator Social History Smoking Status: Former Smoker Allergies Coded Allergies: No Known Allergies (Unverified , 05/27/16) Current Inpatient Medications Current Inpatient Medications Medications (Trade) Dose Ordered Sig/Chaitanya Route Start Time Stop Time Status Last Admin Dose Admin Ondansetron HCl (Zofran Inj) 4 mg Q6H PRN IV 05/27/16 01:45 06/26/16 01:44 05/27/16 15:34 4 MG Morphine Sulfate 2 mg 2 mg Q3H PRN IV 05/27/16 03:30 06/10/16 03:29 05/28/16 12:54 2 MG Ciprofloxacin/ Dextrose 400 mg/ Prmx 200 ml @ 100 mls/hr Q12H IV 05/30/16 06:00 06/05/16 05:59 05/30/16 05:59 100 MLS/HR Lactated Ringer's (Lr 1000ml) 1,000 ml @ 125 mls/hr Q8H IV 05/29/16 22:15 05/30/16 22:14 05/30/16 08:57 125 MLS/HR Review of Systems Constitutional: No chills, No fever Respiratory: No shortness of breath Cardiovascular: No chest pain Abdomen: No nausea, No vomiting Physical Exam Date Time Temp Pulse Resp B/P Pulse Ox O2 Delivery O2 Flow Rate FiO2 05/30/16 07:45 36.6 71 18 113/68 94 Room Air 05/30/16 07:25 Room Air 05/30/16 04:44 114/66 05/30/16 03:55 36.5 73 16 91/53 95 Room Air 05/30/16 01:25 36.4 76 16 117/72 95 Nasal Cannula 2.0 05/30/16 00:25 36.4 75 16 110/64 97 Nasal Cannula 2.0 05/29/16 23:50 Nasal Cannula 2.0 05/29/16 23:25 36.4 75 16 110/64 98 Nasal Cannula 2.0 05/29/16 22:55 36.4 87 17 131/73 93 Nasal Cannula 2.0 05/29/16 22:25 96 Nasal Cannula 2.0 05/29/16 21:50 36.5 65 18 101/60 95 Nasal Cannula 2 05/29/16 21:35 36.5 61 18 111/62 95 Nasal Cannula 2 05/29/16 21:25 74 18 94/49 95 Nasal Cannula 2 05/29/16 21:15 76 18 100/52 95 Room Air 05/29/16 21:08 36.9 80 18 122/70 94 Room Air 05/29/16 16:00 36.7 61 18 147/83 95 Room Air 05/29/16 15:55 Room Air General Appearance: no apparent distress Respiratory/Chest: lungs clear Cardiovascular: regular rate, rhythm Abdomen/GI: non tender, soft Extremities/Musculoskelatal: no pedal edema Neurologic/Psych: alert, normal mood/affect Skin: normal color Laboratory Results Last 24 Hours Test 05/30/16 05:41 White Blood Count 8.33 K/uL Red Blood Count 4.45 M/uL Hemoglobin 12.9 g/dL Hematocrit 39.1 % Mean Corpuscular Volume 87.9 fL Mean Corpuscular Hemoglobin 29.0 pg Mean Corpuscular Hemoglobin Concent 33.0 g/dl Platelet Count 198 K/uL Mean Platelet Volume 11.2 fL Neutrophils (%) (Auto) 79.6 % Lymphocytes (%) (Auto) 10.1 % Monocytes (%) (Auto) 9.6 % Eosinophils (%) (Auto) 0.2 % Basophils (%) (Auto) 0.1 % Neutrophils # (Auto) 6.63 K/uL Lymphocytes # (Auto) 0.84 K/uL Monocytes # (Auto) 0.80 K/uL Eosinophils # (Auto) 0.02 K/uL Basophils # (Auto) 0.01 K/uL RDW Standard Deviation 42.9 fL RDW Coefficient of Variation 13.3 % Immature Granulocyte % (Auto) 0.4 % Immature Granulocyte # (Auto) 0.03 K/uL Sodium Level 144 mmol/L Potassium Level 3.9 mmol/L Chloride Level 110 mmol/L Carbon Dioxide Level 26 mmol/L Anion Gap 8.0 mmol/L Blood Urea Nitrogen 12 mg/dl Creatinine 0.77 mg/dl Est Creatinine Clear Calc Drug Dose 113.3 ml/min Estimated GFR () 111.9 Estimated GFR (Non- 96.6 BUN/Creatinine Ratio 15.1 Random Glucose 90 mg/dl Calcium Level 8.2 mg/dl Total Bilirubin 0.9 mg/dl Direct Bilirubin 0.3 mg/dl Aspartate Amino Transf (AST/SGOT) 42 U/L Alanine Aminotransferase (ALT/SGPT) 182 U/L Alkaline Phosphatase 136 U/L Total Protein 5.3 gm/dl Albumin 2.9 gm/dl Assessment & Plan cholelithiasis, sludge in CBD Will require cholecystectomy. He would like to proceed with laparoscopic cholecystectomy and will plan the procedure for later today. Will discuss with GI, but will plan for drain placement given the possibility of repeat ERCP.
--- NOTE | 2016-05-30 11:07 | Surgery Progress Note ---
Surgery Progress Note Date of Service May 30, 2016. Subjective see Suman Vallejolashamitch's note pt awake, alert, is with him Objective Vital Signs: Date Time Temp Pulse Resp B/P Pulse Ox O2 Delivery O2 Flow Rate FiO2 05/30/16 07:45 36.6 71 18 113/68 94 Room Air 05/30/16 07:25 Room Air 05/30/16 04:44 114/66 05/30/16 03:55 36.5 73 16 91/53 95 Room Air 05/30/16 01:25 36.4 76 16 117/72 95 Nasal Cannula 2.0 05/30/16 00:25 36.4 75 16 110/64 97 Nasal Cannula 2.0 05/29/16 23:50 Nasal Cannula 2.0 05/29/16 23:25 36.4 75 16 110/64 98 Nasal Cannula 2.0 05/29/16 22:55 36.4 87 17 131/73 93 Nasal Cannula 2.0 05/29/16 22:25 96 Nasal Cannula 2.0 05/29/16 21:50 36.5 65 18 101/60 95 Nasal Cannula 2 05/29/16 21:35 36.5 61 18 111/62 95 Nasal Cannula 2 05/29/16 21:25 74 18 94/49 95 Nasal Cannula 2 05/29/16 21:15 76 18 100/52 95 Room Air 05/29/16 21:08 36.9 80 18 122/70 94 Room Air 05/29/16 16:00 36.7 61 18 147/83 95 Room Air 05/29/16 15:55 Room Air General Appearance: no apparent distress Respiratory/Chest: no respiratory distress Abdomen: soft Laboratory Results: Results Past 24 Hours Test 05/30/16 05:41 Range/Units White Blood Count 8.33 4.8-10.8 K/uL Red Blood Count 4.45 4.7-6.1 M/uL Hemoglobin 12.9 14.0-18.0 g/dL Hematocrit 39.1 42-52 % Mean Corpuscular Volume 87.9 80-100 fL Mean Corpuscular Hemoglobin 29.0 25-34 pg Mean Corpuscular Hemoglobin Concent 33.0 32-36 g/dl Platelet Count 198 130-400 K/uL Mean Platelet Volume 11.2 7.4-10.4 fL Neutrophils (%) (Auto) 79.6 % Lymphocytes (%) (Auto) 10.1 % Monocytes (%) (Auto) 9.6 % Eosinophils (%) (Auto) 0.2 % Basophils (%) (Auto) 0.1 % Neutrophils # (Auto) 6.63 1.4-6.5 K/uL Lymphocytes # (Auto) 0.84 1.2-3.4 K/uL Monocytes # (Auto) 0.80 0.11-0.59 K/uL Eosinophils # (Auto) 0.02 0-0.5 K/uL Basophils # (Auto) 0.01 0-0.2 K/uL RDW Standard Deviation 42.9 36.4-46.3 fL RDW Coefficient of Variation 13.3 11.5-14.5 % Immature Granulocyte % (Auto) 0.4 % Immature Granulocyte # (Auto) 0.03 0.00-0.02 K/uL Sodium Level 144 136-145 mmol/L Potassium Level 3.9 3.5-5.1 mmol/L Chloride Level 110 98-107 mmol/L Carbon Dioxide Level 26 21-32 mmol/L Anion Gap 8.0 3-11 mmol/L Blood Urea Nitrogen 12 7-18 mg/dl Creatinine 0.77 0.60-1.40 mg/dl Est Creatinine Clear Calc Drug Dose 113.3 ml/min Estimated GFR () 111.9 Estimated GFR (Non- 96.6 BUN/Creatinine Ratio 15.1 10-20 Random Glucose 90 70-99 mg/dl Calcium Level 8.2 8.5-10.1 mg/dl Total Bilirubin 0.9 0.2-1 mg/dl Direct Bilirubin 0.3 0-0.2 mg/dl Aspartate Amino Transf (AST/SGOT) 42 15-37 U/L Alanine Aminotransferase (ALT/SGPT) 182 12-78 U/L Alkaline Phosphatase 136 45-117 U/L Total Protein 5.3 6.4-8.2 gm/dl Albumin 2.9 3.4-5.0 gm/dl Assessment & Plan 05/30/16- adm with elevated LFTs and epigastric pain- distended gb and 10mm CBD- underwent EUS and ERCP with sphincterotomy and stent- sludge in CBD and stones in gb- discussing lap selena- will check with Dr Clemens
[2016-05-30] MEDS ORDERED: ACETAMINOPHEN IV 650 MG in EMPTY BAG 0 ML IV ONE (11:15)
--- NOTE | 2016-05-30 15:02 | Hospitalist Progress Note ---
Hospitalist Progress Note Date of Service May 30, 2016. (Marianela Sumner PA-C) Subjective Pt evaluation today including: conversation w/ patient, conversation w/ family , physical exam, chart review, lab review, conversation w/ sap basis consultant, review of inpatient medication list denies abd pain, nausea. No f/c/s. No BM. Passing gas Constitutional: No fever Respiratory: No cough, No shortness of breath Cardiovascular: No chest pain Abdomen: No diarrhea, No nausea, No vomiting Neurologic: No weakness Skin: No rash (Marianela Sumner PA-C) Objective Vital Signs Date Time Temp Pulse Resp B/P Pulse Ox O2 Delivery O2 Flow Rate FiO2 05/30/16 12:20 36.5 05/30/16 12:08 37.8 73 18 116/68 95 Room Air 05/30/16 11:38 36.6 64 18 118/72 96 Room Air 05/30/16 07:45 36.6 71 18 113/68 94 Room Air 05/30/16 07:25 Room Air 05/30/16 04:44 114/66 05/30/16 03:55 36.5 73 16 91/53 95 Room Air 05/30/16 01:25 36.4 76 16 117/72 95 Nasal Cannula 2.0 05/30/16 00:25 36.4 75 16 110/64 97 Nasal Cannula 2.0 05/29/16 23:50 Nasal Cannula 2.0 05/29/16 23:25 36.4 75 16 110/64 98 Nasal Cannula 2.0 05/29/16 22:55 36.4 87 17 131/73 93 Nasal Cannula 2.0 05/29/16 22:25 96 Nasal Cannula 2.0 05/29/16 21:50 36.5 65 18 101/60 95 Nasal Cannula 2 05/29/16 21:35 36.5 61 18 111/62 95 Nasal Cannula 2 05/29/16 21:25 74 18 94/49 95 Nasal Cannula 2 05/29/16 21:15 76 18 100/52 95 Room Air 05/29/16 21:08 36.9 80 18 122/70 94 Room Air 05/29/16 16:00 36.7 61 18 147/83 95 Room Air 05/29/16 15:55 Room Air (Marianela Sumner PA-C) Physical Exam General Appearance: no apparent distress Eyes: EOMI Neck: no JVD Respiratory/Chest: lungs clear Cardiovascular: regular rate, rhythm Abdomen: normal bowel sounds, non tender, soft Extremities: non-tender, no pedal edema Neurologic/Psychiatric: no motor/sensory deficits, oriented x 3 (Marianela Sumner PA-C) Laboratory Results 05/30/16 05:41 Red Blood Count 4.45, Mean Corpuscular Volume 87.9, Mean Corpuscular Hemoglobin 29.0, Mean Corpuscular Hemoglobin Concent 33.0, Mean Platelet Volume 11.2, Neutrophils (%) (Auto) 79.6, Lymphocytes (%) (Auto) 10.1, Monocytes (%) (Auto) 9.6, Eosinophils (%) (Auto) 0.2, Basophils (%) (Auto) 0.1, Neutrophils # (Auto) 6.63, Lymphocytes # (Auto) 0.84, Monocytes # (Auto) 0.80, Eosinophils # (Auto) 0.02, Basophils # (Auto) 0.01 05/30/16 05:41 Test 05/30/16 05:41 White Blood Count 8.33 K/uL (4.8-10.8) Red Blood Count 4.45 M/uL (4.7-6.1) Hemoglobin 12.9 g/dL (14.0-18.0) Hematocrit 39.1 % (42-52) Mean Corpuscular Volume 87.9 fL (80-100) Mean Corpuscular Hemoglobin 29.0 pg (25-34) Mean Corpuscular Hemoglobin Concent 33.0 g/dl (32-36) Platelet Count 198 K/uL (130-400) Mean Platelet Volume 11.2 fL (7.4-10.4) Neutrophils (%) (Auto) 79.6 % Lymphocytes (%) (Auto) 10.1 % Monocytes (%) (Auto) 9.6 % Eosinophils (%) (Auto) 0.2 % Basophils (%) (Auto) 0.1 % Neutrophils # (Auto) 6.63 K/uL (1.4-6.5) Lymphocytes # (Auto) 0.84 K/uL (1.2-3.4) Monocytes # (Auto) 0.80 K/uL (0.11-0.59) Eosinophils # (Auto) 0.02 K/uL (0-0.5) Basophils # (Auto) 0.01 K/uL (0-0.2) RDW Standard Deviation 42.9 fL (36.4-46.3) RDW Coefficient of Variation 13.3 % (11.5-14.5) Immature Granulocyte % (Auto) 0.4 % Immature Granulocyte # (Auto) 0.03 K/uL (0.00-0.02) Anion Gap 8.0 mmol/L (3-11) Est Creatinine Clear Calc Drug Dose 113.3 ml/min Estimated GFR () 111.9 Estimated GFR (Non- 96.6 BUN/Creatinine Ratio 15.1 (10-20) Calcium Level 8.2 mg/dl (8.5-10.1) Total Bilirubin 0.9 mg/dl (0.2-1) Direct Bilirubin 0.3 mg/dl (0-0.2) Aspartate Amino Transf (AST/SGOT) 42 U/L (15-37) Alanine Aminotransferase (ALT/SGPT) 182 U/L (12-78) Alkaline Phosphatase 136 U/L (45-117) Total Protein 5.3 gm/dl (6.4-8.2) Albumin 2.9 gm/dl (3.4-5.0) Last 24 Hours Test 05/30/16 05:41 White Blood Count 8.33 K/uL Red Blood Count 4.45 M/uL Hemoglobin 12.9 g/dL Hematocrit 39.1 % Mean Corpuscular Volume 87.9 fL Mean Corpuscular Hemoglobin 29.0 pg Mean Corpuscular Hemoglobin Concent 33.0 g/dl Platelet Count 198 K/uL Mean Platelet Volume 11.2 fL Neutrophils (%) (Auto) 79.6 % Lymphocytes (%) (Auto) 10.1 % Monocytes (%) (Auto) 9.6 % Eosinophils (%) (Auto) 0.2 % Basophils (%) (Auto) 0.1 % Neutrophils # (Auto) 6.63 K/uL Lymphocytes # (Auto) 0.84 K/uL Monocytes # (Auto) 0.80 K/uL Eosinophils # (Auto) 0.02 K/uL Basophils # (Auto) 0.01 K/uL RDW Standard Deviation 42.9 fL RDW Coefficient of Variation 13.3 % Immature Granulocyte % (Auto) 0.4 % Immature Granulocyte # (Auto) 0.03 K/uL Sodium Level 144 mmol/L Potassium Level 3.9 mmol/L Chloride Level 110 mmol/L Carbon Dioxide Level 26 mmol/L Anion Gap 8.0 mmol/L Blood Urea Nitrogen 12 mg/dl Creatinine 0.77 mg/dl Est Creatinine Clear Calc Drug Dose 113.3 ml/min Estimated GFR () 111.9 Estimated GFR (Non- 96.6 BUN/Creatinine Ratio 15.1 Random Glucose 90 mg/dl Calcium Level 8.2 mg/dl Total Bilirubin 0.9 mg/dl Direct Bilirubin 0.3 mg/dl Aspartate Amino Transf (AST/SGOT) 42 U/L Alanine Aminotransferase (ALT/SGPT) 182 U/L Alkaline Phosphatase 136 U/L Total Protein 5.3 gm/dl Albumin 2.9 gm/dl (Marianela Sumner PA-C) Assessment and Plan 61 y/o M Hx osteoarthritis, and lumbar fusion with nerve stimulator implant (no longer working as battery ). Developed sharp epigastric pain which progressed over 2 days prompting him to visit the ER. He denies N/V or diarrhea. A CT was obtained which was consistent with biliary obstruction and the pt was transferred to [facility] for evaluation by a Glove Cutter. At the time of arrival he has intermittent abdominal pain and denies additional symptoms. Labs were notable for LFT and bilirubin elevation. Biliary obstruction - CT abd/pel with CBD 7 mm and common hepatic duct dilated at 12 mm as per outside report. -EUS +/- ERCP 05/[address] Clemens--> acute duodenitis, edema of the papilla s/p stent placement and sphincterotomy 4 stones visualized in Gallbladder Sludge in CBD -NPO, LR, cipro per GI recs -Surgical consult-->await clearing of CBD before cholecystectomy -Diet advancement per GI Osteoarthritis Mild hypernatremia-improved DVT prophylaxis -TEDS, SCDs -chemical means on hold for possible further procedure CODE STATUS -LEVEL I FULL CODE (Marianela Sumner PA-C) JAGUAR Physician Supervision Note: I discussed with Marianela Sumner PAC and agree with findings and plan as documented in the note. Any exceptions or clarifications are listed here: None s/p ercp eus, concern for GB disease and stones in cbd pancreatic duct stented, for consideration of cholecystectomy but will need cbd cleared of stones and debris first, this initiative is being directed by Dr Jayleen albarran abd is soft and mildly tender awaiting definitive logistics for timing of surgery or additional ercp Documented By: Shon Han (Shon Han M.D.)
[2016-05-30] MEDS: METRONIDAZOLE / NSS 500 MG in PREMIXED NSS 100 ML IV SCH ×2 (15:55→23:48)
[2016-05-31] MEDS: CIPROFLOXACIN / D5W 400 MG in PREMIXED IN D5W 200 ML IV SCH ×2 (05:37→16:55)
[2016-05-31 06:41] LABS: BASO % 0.2 %; BASO ABS # 0.02 K/uL (0-0.2); COMPLETE YES; EOS % 1.9 %; HEMATOCRIT 38.7 % (42-52); IG% 0.2 %; LYMPH % 14.7 %; LYMPH ABS # 1.21 K/uL (1.2-3.4); MEAN CELL VOLUME 87.2 fL (80-100); MEAN CORPUSCULAR HEMOGLOBIN 29.1 pg (25-34); MEAN CORPUSCULAR HGB CONC 33.3 g/dl (32-36); MEAN PLATELET VOLUME 10.9 fL (7.4-10.4); MONO % 8.5 %; NEUT % 74.5 %; PLATELET COUNT 192 K/uL (130-400); RED BLOOD COUNT 4.44 M/uL (4.7-6.1); WHITE BLOOD COUNT 8.24 K/uL (4.8-10.8)
[2016-05-31 07:08] LABS: CREATININE 0.82 mg/dl (0.60-1.40)
[2016-05-31 07:09] LABS: BUN/CREATININE RATIO 13.3 (10-20); CALCIUM 8.4 mg/dl (8.5-10.1); POTASSIUM 3.8 mmol/L (3.5-5.1)
[2016-05-31 07:11] LABS: ALB/GLOB RATIO 1.1 (0.9-2)
[2016-05-31] MEDS: METRONIDAZOLE / NSS 500 MG in PREMIXED NSS 100 ML IV SCH ×2 (07:44→15:36)
[2016-05-31 08:05] VITALS: BP 147/83; PULSE 69; TEMP 36.5; O2SAT 95
--- NOTE | 2016-05-31 11:45 | Hospitalist Progress Note ---
Hospitalist Progress Note Date of Service May 31, 2016. (Marianela Sumner PA-C) Subjective Pt evaluation today including: conversation w/ patient, physical exam, chart review, lab review, conversation w/ loans consultant, review of inpatient medication list Patient reports he is "not good this morning." Had a few bites of breakfast. Seems to have made abdominal pain worse. He describes as a pressure sensation in his upper abdomen. Denies any nausea. No bowel movements. Patient is still passing gas. Denies fever or chills. Additional Comments: 6 system review negative. Please see pertinent positives in the history of present illness section. (Marianela Sumner PA-C) Objective Vital Signs Date Time Temp Pulse Resp B/P Pulse Ox O2 Delivery O2 Flow Rate FiO2 05/31/16 08:08 Room Air 05/31/16 08:05 36.5 69 16 147/83 95 Room Air 05/30/16 23:55 Room Air 05/30/16 22:55 36.5 77 18 107/66 91 Room Air 05/30/16 16:00 93 Room Air 05/30/16 14:55 36.5 71 18 99/61 93 Room Air 05/30/16 12:20 36.5 05/30/16 12:08 37.8 73 18 116/68 95 Room Air 05/30/16 11:38 36.6 64 18 118/72 96 Room Air (Marianela Sumner PA-C) Physical Exam General Appearance: + mild distress (in mild discomfort) Neck: no JVD Respiratory/Chest: lungs clear Cardiovascular: regular rate, rhythm Abdomen: soft, + pertinent finding (slightly more distended today. Tenderness to palpation appreciated in the right upper quadrant, epigastric region and left upper quadrant. No guarding or rebound tenderness.) Extremities: non-tender, no pedal edema Neurologic/Psychiatric: no motor/sensory deficits, oriented x 3 Skin: warm/dry (Marianela Sumner PA-C) Laboratory Results 05/31/16 06:26 Red Blood Count 4.44, Mean Corpuscular Volume 87.2, Mean Corpuscular Hemoglobin 29.1, Mean Corpuscular Hemoglobin Concent 33.3, Mean Platelet Volume 10.9, Neutrophils (%) (Auto) 74.5, Lymphocytes (%) (Auto) 14.7, Monocytes (%) (Auto) 8.5, Eosinophils (%) (Auto) 1.9, Basophils (%) (Auto) 0.2, Neutrophils # (Auto) 6.13, Lymphocytes # (Auto) 1.21, Monocytes # (Auto) 0.70, Eosinophils # (Auto) 0.16, Basophils # (Auto) 0.02 05/31/16 06:26 Test 05/31/16 06:26 05/31/16 06:30 White Blood Count 8.24 K/uL (4.8-10.8) Red Blood Count 4.44 M/uL (4.7-6.1) Hemoglobin 12.9 g/dL (14.0-18.0) Hematocrit 38.7 % (42-52) Mean Corpuscular Volume 87.2 fL (80-100) Mean Corpuscular Hemoglobin 29.1 pg (25-34) Mean Corpuscular Hemoglobin Concent 33.3 g/dl (32-36) Platelet Count 192 K/uL (130-400) Mean Platelet Volume 10.9 fL (7.4-10.4) Neutrophils (%) (Auto) 74.5 % Lymphocytes (%) (Auto) 14.7 % Monocytes (%) (Auto) 8.5 % Eosinophils (%) (Auto) 1.9 % Basophils (%) (Auto) 0.2 % Neutrophils # (Auto) 6.13 K/uL (1.4-6.5) Lymphocytes # (Auto) 1.21 K/uL (1.2-3.4) Monocytes # (Auto) 0.70 K/uL (0.11-0.59) Eosinophils # (Auto) 0.16 K/uL (0-0.5) Basophils # (Auto) 0.02 K/uL (0-0.2) RDW Standard Deviation 43.4 fL (36.4-46.3) RDW Coefficient of Variation 13.5 % (11.5-14.5) Immature Granulocyte % (Auto) 0.2 % Immature Granulocyte # (Auto) 0.02 K/uL (0.00-0.02) Anion Gap 6.0 mmol/L (3-11) Est Creatinine Clear Calc Drug Dose 106.4 ml/min Estimated GFR () 109.1 Estimated GFR (Non- 94.1 BUN/Creatinine Ratio 13.3 (10-20) Calcium Level 8.4 mg/dl (8.5-10.1) Total Bilirubin 0.6 mg/dl (0.2-1) Aspartate Amino Transf (AST/SGOT) 30 U/L (15-37) Alanine Aminotransferase (ALT/SGPT) 145 U/L (12-78) Alkaline Phosphatase 129 U/L (45-117) Total Protein 5.5 gm/dl (6.4-8.2) Albumin 2.9 gm/dl (3.4-5.0) Globulin 2.6 gm/dl (2.5-4.0) Albumin/Globulin Ratio 1.1 (0.9-2) Last 24 Hours Test 05/31/16 06:26 05/31/16 06:30 White Blood Count 8.24 K/uL Red Blood Count 4.44 M/uL Hemoglobin 12.9 g/dL Hematocrit 38.7 % Mean Corpuscular Volume 87.2 fL Mean Corpuscular Hemoglobin 29.1 pg Mean Corpuscular Hemoglobin Concent 33.3 g/dl Platelet Count 192 K/uL Mean Platelet Volume 10.9 fL Neutrophils (%) (Auto) 74.5 % Lymphocytes (%) (Auto) 14.7 % Monocytes (%) (Auto) 8.5 % Eosinophils (%) (Auto) 1.9 % Basophils (%) (Auto) 0.2 % Neutrophils # (Auto) 6.13 K/uL Lymphocytes # (Auto) 1.21 K/uL Monocytes # (Auto) 0.70 K/uL Eosinophils # (Auto) 0.16 K/uL Basophils # (Auto) 0.02 K/uL RDW Standard Deviation 43.4 fL RDW Coefficient of Variation 13.5 % Immature Granulocyte % (Auto) 0.2 % Immature Granulocyte # (Auto) 0.02 K/uL Sodium Level 146 mmol/L Potassium Level 3.8 mmol/L Chloride Level 113 mmol/L Carbon Dioxide Level 27 mmol/L Anion Gap 6.0 mmol/L Blood Urea Nitrogen 11 mg/dl Creatinine 0.82 mg/dl Est Creatinine Clear Calc Drug Dose 106.4 ml/min Estimated GFR () 109.1 Estimated GFR (Non- 94.1 BUN/Creatinine Ratio 13.3 Random Glucose 100 mg/dl Calcium Level 8.4 mg/dl Total Bilirubin 0.6 mg/dl Aspartate Amino Transf (AST/SGOT) 30 U/L Alanine Aminotransferase (ALT/SGPT) 145 U/L Alkaline Phosphatase 129 U/L Total Protein 5.5 gm/dl Albumin 2.9 gm/dl Globulin 2.6 gm/dl Albumin/Globulin Ratio 1.1 (Marianela Sumner PA-C) Assessment and Plan 61 y/o M Hx osteoarthritis, and lumbar fusion with nerve stimulator implant (no longer working as battery ). Developed sharp epigastric pain which progressed over 2 days prompting him to visit the ER. He denies N/V or diarrhea. A CT was obtained at [place] consistent with biliary obstruction and the pt was transferred to [facility] for evaluation by a Skiver Box Toe. At the time of arrival he has intermittent abdominal pain and denies additional symptoms. Labs were notable for LFT and bilirubin elevation. ? Biliary obstruction- -EUS +/- ERCP 05/[address] Clemens--> acute duodenitis, edema of the papilla s/p stent placement and sphincterotomy 4 stones visualized in Gallbladder Sludge in CBD -Surgical consult obtained 05/29-->await clearing of CBD before cholecystectomy -Discussed at length with Dr. Clemens today. Plan is for possible transfer to [place] for repeat ERCP +/-biliary drain placement with interventional radiology. -Backup plan is for a repeat ERCP here on Sunday at 9:[address] Clemens Worsening abdominal pain today despite improvement in LFTs -Add amylase, lipase -Pending results, consider repeating a CT of the abdomen and pelvis to assess for pancreatitis -Decrease diet. NPO except meds -Continue ABX coverage Cipro/Flagyl Osteoarthritis Mild hypernatremia-stable -Continue IVF DVT prophylaxis -TEDS, SCDs -chemical means on hold for possible further procedure -ENCOURAGE AMBULATION IN [place] CODE STATUS -LEVEL I FULL CODE (Marianela Sumner PA-C) PA Physician Supervision Note: I discussed with Marianela Sumner PAC and agree with findings and plan as documented in the note. Any exceptions or clarifications are listed here: None s/p ercp eus, concern for GB disease and stones in cbd pancreatic duct stented, for consideration of cholecystectomy but will need cbd cleared of stones and debris first, this initiative is being directed by Dr Clemens, he has arranged transport to [facility] accepting physician Dr Weber for this directive vss abd is soft and mildly tender awaiting definitive logistics for timing of transfer Documented By: Shon Han (Shon Han M.D.) (Shon Han M.D.)
[2016-05-31 11:48] LABS: AMYLASE 35 U/L (25-115)
[2016-05-31] MEDS ORDERED: LACTATED RINGER'S 1000ML 1,000 ML IV SCH (12:00)
[2016-05-31] MEDS ORDERED: [UNRECOGNIZED DRUG - CODE] IV (14:45)
[2016-05-31] MEDS ORDERED: [UNRECOGNIZED DRUG - CODE] IV (14:45)
[2016-05-31 14:51] VITALS: BP 149/84; PULSE 84; TEMP 36.6; O2SAT 96
--- NOTE | 2016-05-31 14:51 | Discharge Instructions ---
Discharge Instructions Date of Service May 31, 2016. Admission Reason for Admission: Biliary Obstrucion Discharge Discharge Diagnosis / Problem: biliary obstruction Discharge Goals Goal(s): Diagnostic testing Activity Recommendations Activity Limitations: per Instructions/Follow-up section . Instructions / Follow-Up Instructions / Follow-Up Transfer to [facility] for ERCP and possible interventional radiology procedure Current Hospital Diet Patient's current hospital diet: Low Fat Diet Discharge Diet Recommended Diet: N/A Procedures Procedures Performed: Upper Endoscopic Ultrasonography, Endoscopic Retrograde Cholangiopancreatogram Pending Studies Studies pending at discharge: no Medical Emergencies . Who to Call and When: Medical Emergencies: If at any time you feel your situation is an emergency, please call 911 immediately. . Non-Emergent Contact Non-Emergency issues call your: Primary Care Provider . . "Provider Documentation" section prepared by Marianela Sumner. VTE Core Measure Inpt VTE Proph given/why not?: SCD's
--- NOTE | 2016-05-31 14:58 | Discharge Summary ---
Discharge Summary Date of Service May 31, 2016. Discharge Summary Admission Date: May 27, 2016 at 00:38 Discharge Date: May 31, 2016 Discharge Disposition: Acute care facility Principal Diagnosis: biliary obstruction Problems/Secondary Diagnoses: osteoarthritis Procedures: EUS 05/29 Impression: - Normal esophagus. - Erythematous mucosa in the antrum. - Erythematous duodenopathy. - Acute duodenitis. - There was no sign of significant pathology in the esophagus. - Endosonographic images of the stomach were unremarkable. - There was no sign of significant pathology in the ampulla, in the duodenal bulb and in the second portion of the duodenum. - Four stones were visualized endosonographically in the gallbladder. - Hyperechoic material consistent with sludge was visualized endosonographically in the common bile duct and in the middle third of the main bile duct. - There was no evidence of significant pathology in the left lobe of the liver. - There was no sign of significant pathology in the pancreatic head, in the pancreatic body, in the pancreatic tail and in the main pancreatic ERCP 05/29 Impression: - The major papilla appeared edematous. - The major papilla appeared erythematous. - The major papilla appeared to be bulging. - One temporary plastic pancreatic stent was placed into the ventral pancreatic duct. - A precut sphincterotomy was performed. Biliary canulation was unsuccesssful. Consultations: GI-[place] Medication Reconciliation New Medications: Ciprofloxacin (Ciprofloxacin) 400 Mg/40 Ml Inj 400 MG IV BID for 3 Days Metronidazole In Nacl (Metronidazole In Nacl 0.7) 1 Inj Inj 500 MG IV TID for 3 Days Discontinued Medications: Meloxicam (Mobic) 7.5 Mg Tab 7.5 MG PO BID, TAB Discharge Exam had abd pain/pressure after breakfast today. No n/v. Passing gas. No fever or chills Review of Systems: Constitutional: No fever Respiratory: No shortness of breath Cardiovascular: No chest pain Abdomen: + pain, No nausea Genitourinary - Female: No dysuria Neurologic: No weakness Hospital Course 61 y/o M Hx osteoarthritis, and lumbar fusion with nerve stimulator implant (no longer working as battery ). Developed sharp epigastric pain which progressed over 2 days prompting him to visit the ER at [place]. He denies N/V or diarrhea. A CT was obtained at [place] consistent with biliary obstruction and the pt was transferred to [facility] for evaluation by a Metal Trades Instructor. At the time of arrival he has intermittent abdominal pain and denies additional symptoms. Labs were notable for LFT and bilirubin elevation. ? Biliary obstruction- -EUS +/- ERCP 05/[address] Clemens on 05/29--> acute duodenitis, edema of the papilla s/p stent placement and sphincterotomy 4 stones visualized in Gallbladder Sludge in CBD -GI rec NPO, cipro, LR and Flagyl added per primary team -Surgical consult obtained 05/29-->await clearing of CBD before cholecystectomy -Discussed at length with Dr. Clemens today. -Plan for transfer to [facility] for repeat ERCP and possible need for IR to place biliary drain -Accepting physician Dr. Weber -Pt will then eventually need cholecystectomy-->may follow up with Dr. Minor as outpt Osteoarthritis -Meloxicam on hold Mild hypernatremia-stable -Continue IVF DVT prophylaxis -TEDS, SCDs -chemical means on hold for possible further procedure CODE STATUS -LEVEL I FULL CODE DISPO -To [facility] when bed available Total Time Spent: Greater than 30 minutes This includes examination of the patient, discharge planning, medication reconciliation, and communication with other providers. Discharge Instructions Please refer to the electronic Patient Visit Report (Discharge Instructions) for additional information. Additional Copies To Daniel Conn D.O.; Toby Minor M.D.; Rafi Clemens M.D.
--- NOTE | 2016-06-01 00:16 | GASTROINTESTINAL CONSULTATION ---
DATE OF CONSULTATION: 05/30/2016 DATE AND TIME: On 05/30/2016, approximately at 6:00 p.m. HISTORY OF PRESENT ILLNESS: The patient had undergone EUS and attempted ERCP on Sunday evening. The EUS suggests gallstones, sludge and perhaps stones in the common bile duct which is prominent. Attempted ERCP would not permit access due to significant congestion in the ampullary region. A wire did achieve the pancreatic duct and a PD stent was placed. Despite attempts to cannulate alongside of the duct including attempted precut sphincterotomy biliary cannulation could not be achieved. The patient actually did well overnight, received Cipro IV and continues on IV q. 12 dosing. He also received lactated Ringer's overnight at 125 mL an hour.. His LFTs earlier this morning actually show continued resolution. The patient had no evidence of abdominal pain, nausea or vomiting and tolerated the procedure well. He actually feels hungry. Earlier today, I advanced his diet to liquids first and then low fat. I spoke with the patient and his family including his , son and daughter at length this evening regarding the options on how to pursue this ongoing problem. I also spoke with Dr. Minor earlier in the afternoon for the issue regarding gallstones and eventual cholecystectomy. Based on our discussion clearly without control of bile duct flow, laparoscopic cholecystectomy may have a higher risk of a biliary leak and therefore would like to first achieve biliary drainage prior to its removal. The options based on the resources available would be to consider waiting a couple of days to allow for the ampullary congestion to settle down. To this end, I had made tentative arrangements for ERCP on Sunday at 9:30 AM in the OR at [facility]. This could be either as an inpatient or outpatient. The patient was agreeable; however, the family was concerned on several fronts; one that this attack would reoccur over the next couple of days and this is possible. This would require a repeat ERCP. Secondly, if cannulation was not successful, then the patient would still require transfer to a referral center where a re-attempt at ERCP or interventional radiology would be available. After a lengthy discussion with the family, it was agreed that I would contact [facility] to see if we can transfer the patient at some point over the next 24 hours in anticipation of performing a re-attempt ERCP and if not successful interventional radiology. I spoke with the transfer center at [facility] and did speak with the medical admitting physician and I had earlier spoken to Dr. Nieves from [facility] in the day. At the present time, [facility] does not have any open beds; but will place him on a transfer list and transfer him down at the earliest available time. I informed the patient and his of the waiting list status as well as the primary team's night coverage to let them know that I started the process of transfer to [facility] for this procedure/procedures. They were agreeable to the plan of care. At this time, the patient can have a low-fat diet if tolerated and we will watch his liver function tests in the interim and continue IV antibiotics as currently prescribed. His physical exam was otherwise unremarkable today and his liver function tests show continued resolution with a bilirubin at 5:00 a.m. this morning of 0.9 with a direct of 0.3, AST is down to 42, ALT reduced to 182 and alkaline phosphatase down to 136. The patient has a normal white blood cell count and hemoglobin remained stable. His physical exam was otherwise unremarkable. All their questions were answered. We will await for the options of the transfer. If the scenario changes overnight, if pain recurs or increases then we may need to consider a re-attempt of ERCP at [facility] over the next few days. Over 90 minutes spent this evening with the patient /family and making arrangements for eventual transfer to [facility]
[2016-08-08] MEDS ORDERED: OMEP40CA41 PO (07:58)
[2016-08-08] MEDS ORDERED: APIX1TAB3 PO (07:58)
[2016-09-07] MEDS ORDERED: HYDR-5688 PO (05:08)
== END 2016-05-31 19:00 | disposition short-term general hospital (02) | DRG 445 ==
LOC: C.MSN 00:38
PROVIDERS: ADMIT Internal Medicine; ATTEND Internal Medicine
PROC: 0F7D8DZ Dilation of Pancreatic Duct with Intraluminal Device, Via Natural or Artificial Opening Endoscopic (ICD-10-PCS; principal; 2016-05-29 18:00)
DX: K83.1 Obstruction of bile duct (principal); E87.0 Hyperosmolality and hypernatremia; Z96.651 Presence of right artificial knee joint; Z98.1 Arthrodesis status; Z87.891 Personal history of nicotine dependence; K29.80 Duodenitis without bleeding; K80.20 Calculus of gallbladder without cholecystitis without obstruction

== ENCOUNTER → 2016-07-25 | Outpatient (CLI) | payer BC ==
[~2016-07-25] MED LIST: APIX1TAB3 PO; HYDR-5688 PO; MELO7.5T5 PO; OMEP40CA41 PO; OPTIRAY 320 IV PRN; [UNRECOGNIZED DRUG - CODE] IV; [UNRECOGNIZED DRUG - CODE] IV
--- NOTE | 2016-07-25 16:13 | DIAGNOSTIC IMAGING REPORT ---
CT SCAN OF THE ABDOMEN COMBO PANCREAS PROTOCOL CLINICAL HISTORY: Cholangitis. Choledocholithiasis. Atypical cells seen on common bile duct brushing. COMPARISON STUDY: Abdominal CT dated 05/26/2016. TECHNIQUE: Before and following the IV administration of 93 cc of Optiray 320, CT scan of the abdomen is performed from the lung bases to the pelvic inlet utilizing the pancreas protocol. Images are reviewed in the axial, sagittal, and coronal planes. IV contrast was administered without complication. Automated dose control exposure was utilized. The examination is degraded by streak artifact from metallic orthopedic spinal hardware. CT DOSE: 870.65 mGy.cm FINDINGS: Lung bases: The heart is mildly enlarged and without pericardial effusion. There our fat-containing Bochdalek hernias seen at both lung bases. The lung bases are otherwise clear. There is a tiny hiatal hernia. There are pulmonary emboli identified within segmental and subsegmental branches of the right lower lobe pulmonary artery. These are best seen on the arterial phase series on images #9 and #24. Liver: The contrast-enhanced liver is normal in size, contour, and attenuation. Pneumobilia is observed. There is no intrahepatic biliary ductal dilatation. Scattered hepatic cysts measure up to 2.3 cm. Additional subcentimeter hepatic hypodensities also likely represent cysts but are too small for definitive characterization. Hepatic and portal vasculature: Hepatic arterial anatomy is conventional. The hepatic veins, portal veins are patent, superior mesenteric vein, and splenic vein are patent. Gallbladder: A common bile duct stent is in place. The gallbladder is normal in appearance. The wall of the common bile duct is mildly thickened, likely related to the presence of an indwelling stent. Small foci of gas within the gallbladder lumen are also likely related to instrumentation. Spleen: Normal in size and attenuation. Pancreas: The pancreas is normal as visualized. The pancreatic duct is normal in caliber. There is no contents evidence of pancreatic mass lesion. Adrenal glands: A 1.4 cm right adrenal nodule meets CT criteria for a fat-containing adenoma. Kidneys: No renal calculi are identified on the unenhanced series. The contrast enhanced kidneys demonstrate mild cortical atrophy and are without hydronephrosis. There is a 3.8 cm cyst in the interpolar left kidney. Additional subcentimeter cortical hypodensities also likely represent cysts but are too small for definitive characterization. The kidneys enhance symmetrically. Abdominal vasculature: The abdominal aorta is normal in course and caliber noting advanced atherosclerotic calcification.. Bowel: Visualized portions of the small bowel and colon are normal in course and caliber. The appendix is well-visualized and normal. Peritoneum: There is no intraperitoneal free air or abdominal ascites. There is a small fat-containing umbilical hernia. Lymphadenopathy: None. Skeletal structures: The skeletal structures appear osteopenic. There is moderate lumbosacral spondylosis with evidence of extensive lumbar spinal fusion surgery. No lytic or blastic lesions are seen. IMPRESSION: 1. There are segmental and subsegmental pulmonary emboli identified within branches of the right lower lobe pulmonary artery. 2. A common bile duct stent is in place. Pneumobilia suggests patency of the stent and there is no intrahepatic biliary ductal dilatation. Gas within the gallbladder lumen is also likely related to the presence of an indwelling stent. 3. Mild wall thickening is noted in the common bile duct. This is nonspecific and likely related to the presence of an indwelling stent. Clinical correlation will be required. 4. No pancreatic mass lesion is identified. The pancreatic duct is normal in caliber. 5. Mild cardiomegaly. 6. Additional findings as documented above. Electronically signed by: Jose Marquez M.D. 07/25/2016 4:12 PM Dictated Date/Time: 07/25/2016 4:00 PM
== END | disposition home or self-care (01) ==
LOC: C.CTS 15:23
PROVIDERS: ATTEND Internal Medicine Gastroenterology
DX: K80.80 Other cholelithiasis without obstruction (principal); I26.99 Other pulmonary embolism without acute cor pulmonale

== ENCOUNTER 2016-09-06 05:47 | Observation (INO) | payer BC ==
[2016-08-08 07:58] VITALS: BMI 26.0
[~2016-09-06] VITALS: Ht 180.3 cm; Wt 85.0 kg
[2016-09-06] VITALS (10 sets, daily range): BP systolic 113–154; BP diastolic 67–85; PULSE 51–87; TEMP 36.5–36.9; O2SAT 92–97; Ht 180.3 cm; Wt 85.0 kg
[~2016-09-06 05:47] MED LIST changes: +CEFUROXIME IV 1,500 MG in DEXTROSE 5% 100ML IV SCH; -HYDR-5688 PO; +LACTATED RINGER'S 1000ML 1,000 ML IV SCH; -MELO7.5T5 PO; -OPTIRAY 320 IV PRN; -[UNRECOGNIZED DRUG - CODE] IV; -[UNRECOGNIZED DRUG - CODE] IV
[2016-09-06] MEDS ORDERED: CEFUROXIME IV 1,500 MG in DEXTROSE 5% 100ML IV SCH (06:00)
[2016-09-06] MEDS ORDERED: LACTATED RINGER'S 1000ML 1,000 ML IV SCH (06:00)
[2016-09-06] MEDS ORDERED: MELO7.5T5 PO (06:15)
[2016-09-06] MEDS ORDERED: GLYCOPYRROLATE INJ 0.2 MG/ML VIAL ONE ×2 (07:08→08:13)
[2016-09-06] MEDS ORDERED: PROPOFOL IV EMULSION 10 MG/ML 20 ML VIAL IV ONE (07:08)
[2016-09-06] MEDS ORDERED: ONDANSETRON INJ 2 MG/ML 2 ML VIAL ONE (07:08)
[2016-09-06] MEDS ORDERED: NEOSTIGMINE METHYLSULFATE 5 MG/5 ML SYR ONE (07:08)
[2016-09-06] MEDS ORDERED: DEXAMETHASONE SOD INJ 4 MG/ML VIAL ONE (07:08)
[2016-09-06] MEDS ORDERED: LIDOCAINE HCL 2% 2 ML VIAL (20MG/ML) ONE (07:08)
[2016-09-06] MEDS ORDERED: FENTANYL CITRATE INJ 50 MCG/1 ML 2 ML VIAL ONE (07:09)
[2016-09-06] MEDS ORDERED: MIDAZOLAM HCL 1 MG/ML 2ML VIAL ONE (07:09)
[2016-09-06] MEDS ORDERED: CONRAY 60% 50 ML VIAL ONE (07:37)
[2016-09-06] MEDS ORDERED: BUPIVACAINE 0.5 % 5 MG/1 ML MPF 30ML VIAL ONE (07:37)
[2016-09-06] MEDS ORDERED: CISATRACURIUM BESYLATE IV SOLN 2 MG/ML 10 ML VIAL ONE (08:13)
[2016-09-06] MEDS ORDERED: SUCCINYLCHOLINE CHLORIDE 20 MG/ML 10 ML VIAL IV ONE (08:22)
--- NOTE | 2016-09-06 08:56 | [facility] Post Operative Brief Note ---
Immediate Operative Summary Operative Date Sep 06, 2016. Pre-Operative Diagnosis chronic cholecystitis, cholelithiasis, calculus of gallbladder Post-Operative Diagnosis chronic cholecystitis, cholelithiasis, calculus of gallbladder Procedure(s) Performed Laparoscopic Cholecystectomy Surgeon Dr. Toby Minor It Business Systems Analyst Surgeon(s) Jenn Segura PA-C, Sunday Baron PA-C Estimated Blood Loss 10ml Findings omental adhesions to gb and chronic inflammation at [address] DAX drain placed umbilical incision closed with 0 vicryl for fascia, 4-0 nylon for skin, other sites closed with 5-0 monocryl and dermabond Specimens A. Gallbladder Drains #[id number] DAX to subhepatic space Anesthesia gen Complication(s) None Disposition Recovery Room / PACU
[2016-09-06] MEDS ORDERED: PROMETHAZINE HCL INJ 25 MG in SODIUM CHLORIDE 0.9% 50ML 50 ML IV PRN (09:00)
[2016-09-06] MEDS ORDERED: HYDROCODONE/ACETAMOPHEN 5/325MG TAB PO PRN (09:00)
[2016-09-06] MEDS ORDERED: ONDANSETRON INJ 2 MG/ML 2 ML VIAL IV PRN ×2 (09:00→09:15)
[2016-09-06] MEDS ORDERED: MoRPHine SULFATE 2 MG/ML CARP IV PRN (09:00)
[2016-09-06] MEDS ORDERED: MoRPHine SULFATE 4 MG/ML 1 ML CARP\\VIAL IV PRN (09:00)
[2016-09-06] MEDS ORDERED: LABETALOL HCL IV 5 MG/ML 20ML IV PRN (09:15)
[2016-09-06] MEDS ORDERED: NALOXONE HCL 0.4 MG/1 ML VIAL/CARP IV PRN (09:15)
[2016-09-06] MEDS ORDERED: PROMETHAZINE HCL INJ 12.5 MG in SODIUM CHLORIDE 0.9% 50ML 50 ML IV PRN ×2 (09:15→11:00)
[2016-09-06] MEDS ORDERED: ATROPINE SULFATE 0.1 MG/ML 5ML SYR IV PRN (09:15)
[2016-09-06] MEDS ORDERED: EpHEDrine SULFATE INJ 50 MG/ML AMP IV PRN (09:15)
[2016-09-06] MEDS ORDERED: FLUMAZENIL 0.1 MG/1 ML 10 ML VIAL IV PRN (09:15)
[2016-09-06] MEDS: HYDROmorphone INJ 1 MG/ML SYR IV PRN ×2 (09:23→09:26)
--- NOTE | 2016-09-06 10:11 | Anesthesiology Progress Note ---
Anesthesia Post Op Note Date & Time Sep 06, 2016 at 10:11 Vital Signs Pain Intensity: 4 Vital Signs Past 12 Hours Date Time Temp Pulse Resp B/P (MAP) Pulse Ox O2 Delivery O2 Flow Rate FiO2 09/06/16 10:00 50 16 127/81 99 Nasal Cannula 2 09/06/16 09:50 36.0 51 19 129/78 94 Nasal Cannula 2 09/06/16 09:40 51 18 130/80 95 Nasal Cannula 2 09/06/16 09:30 58 20 135/75 95 Nasal Cannula 2 09/06/16 09:20 52 20 144/84 100 Mask 10 09/06/16 09:10 56 20 150/84 100 Mask 10 09/06/16 09:04 36.2 72 16 153/90 97 Mask 10 09/06/16 06:20 36.5 63 18 154/77 (102) 97 Room Air Notes Mental Status: alert / awake / arousable, participated in evaluation Pt Amnestic to Procedure: Yes Nausea / Vomiting: adequately controlled Pain: adequately controlled Airway Patency, RR, SpO2: stable & adequate BP & HR: stable & adequate Hydration State: stable & adequate Anesthetic Complications: no major complications apparent
[2016-09-06] MEDS ORDERED: IV FLUIDS COMPLETED PRN (11:15)
[2016-09-06] MEDS: LACTATED RINGER'S 1000ML 1,000 ML IV SCH (11:48)
--- NOTE | 2016-09-06 12:09 | Medical Consult ---
Consultation Date of Consultation: Sep 06, 2016. Attending Physician: Toby Minor M.D. Reason for Consultation: Medical Management History of Present Illness This is a 61 yo M with PMHx of osteoarthritis,lumbar fusion with nerve stimulator implant (no longer working as battery ) and chronic cholecystitis, cholelithiasis, calculus of gallbladder who underwent Laparoscopic Cholecystectomy by Dr. Minor on 09/06/16. The patient was seen with his at bedside. He notes he is having some significant abdominal pain and rates it a 6 out of 10, he denies any passing of gas or bowel movement since surgery. He has not yet eaten anything but is requesting a diet. He just received morphine sulfate 2 mg, per nursing for pain. Social History Smoking Status: Former Smoker Allergies Coded Allergies: No Known Allergies (Unverified , 09/06/16) Current Inpatient Medications Current Inpatient Medications Medications (Trade) Dose Ordered Sig/Chaitanya Route Start Time Stop Time Status Last Admin Dose Admin Lactated Ringer's 1,000 ml @ 15 mls/hr Q24H IV 09/06/16 06:00 09/07/16 05:59 09/06/16 06:42 15 MLS/HR Cefuroxime Sodium 1500 mg/Dextrose 115 ml @ 230 mls/hr PREOP IV 09/06/16 06:00 09/06/16 15:00 09/06/16 07:55 230 MLS/HR Meloxicam (Mobic Tab) 7.5 mg DAILY PO 09/07/16 09:00 10/07/16 08:59 Pantoprazole Sodium (Protonix Tab) 40 mg QAM PO 09/07/16 09:00 10/07/16 08:59 Lactated Ringer's 1,000 ml @ 50 mls/hr Q20H IV 09/06/16 11:00 10/06/16 10:59 09/06/16 11:48 50 MLS/HR Heparin Sodium (Porcine) (Heparin Sq 5000 Unit/0.5ml) 5,000 unit Q8 SQ 09/06/16 22:00 10/06/16 21:59 Cefuroxime Sodium 1500 mg/Dextrose 115 ml @ 200 mls/hr Q8 IV 09/06/16 14:00 09/07/16 13:59 Acetaminophen/ Hydrocodone Bitart ([place] 5/325 Tab) 1 tab Q4 PRN PO 09/06/16 09:00 09/20/16 08:59 Acetaminophen/ Hydrocodone Bitart ([place] 5/325 Tab) 2 tab Q4 PRN PO 09/06/16 09:00 09/20/16 08:59 Morphine Sulfate (MoRPHine SULFATE INJ) 2 mg Q4H PRN IV 09/06/16 09:00 09/20/16 08:59 09/06/16 11:49 2 MG Morphine Sulfate (MoRPHine SULFATE INJ) 4 mg Q4H PRN IV 09/06/16 09:00 09/20/16 08:59 Promethazine HCl 25 mg/Sodium Chloride 51 ml @ 204 mls/hr Q6H PRN IV 09/06/16 09:00 10/06/16 08:59 Ondansetron HCl (Zofran Inj) 4 mg Q6H PRN IV 09/06/16 09:00 10/06/16 08:59 Hydromorphone HCl (Dilaudid Inj) 0.25 mg Q5M PRN IV 09/06/16 09:15 09/06/16 14:15 09/06/16 09:26 0.25 MG Naloxone HCl (Narcan Inj) 0.2 mg Q2M PRN IV 09/06/16 09:15 09/06/16 14:15 Flumazenil (Romazicon Inj) 0.2 mg Q2M PRN IV 09/06/16 09:15 09/06/16 14:15 Ondansetron HCl (Zofran Inj) 4 mg ONE PRN IV 09/06/16 09:15 09/06/16 14:15 Promethazine HCl 12.5 mg/Sodium Chloride 50.5 ml @ 202 mls/hr ONE PRN IV 09/06/16 09:15 09/06/16 14:15 Labetalol HCl (Normodyne IV) 5 mg Q5M PRN IV 09/06/16 09:15 09/06/16 14:15 Ephedrine Sulfate (EpHEDrine SULFATE INJ) 5 mg Q5M PRN IV 09/06/16 09:15 09/06/16 14:15 Atropine Sulfate (Atropine Sulfate 0.1MG/Ml Inj) 0.5 mg Q1M PRN IV 09/06/16 09:15 09/06/16 14:15 Promethazine HCl 12.5 mg/Sodium Chloride 50.5 ml @ 202 mls/hr Q6H PRN IV 09/06/16 11:00 10/06/16 10:59 Miscellaneous (Iv Fluids Completed) 1 ea PRN PRN N/A 09/06/16 11:15 09/06/17 11:14 Review of Systems Constitutional: No fever, sweats or chills Eyes: No diplopia, no worsening or blurred vision ENT: normal hearing, no trouble swallowing Respiratory: No cough, sputum, dyspnea at rest or on exertion Cardiovascular: No chest pain, tightness or palpitations Abdomen: See history of present illness Musculoskeletal: No joint pain, calf pain, swelling Neurologic: No weakness, numbness/tingling, or balance problems Psychiatric: No anxiety or depression Skin: No rash or itch Physical Exam Date Time Temp Pulse Resp B/P (MAP) Pulse Ox O2 Delivery O2 Flow Rate FiO2 09/06/16 11:27 72 16 117/79 (92) 94 2.0 09/06/16 10:52 51 16 129/76 (93) 97 2.0 09/06/16 10:35 95 Nasal Cannula 1.0 09/06/16 10:20 95 Nasal Cannula 1.0 09/06/16 10:00 50 16 127/81 99 Nasal Cannula 2 09/06/16 09:50 36.0 51 19 129/78 94 Nasal Cannula 2 09/06/16 09:40 51 18 130/80 95 Nasal Cannula 2 09/06/16 09:30 58 20 135/75 95 Nasal Cannula 2 09/06/16 09:20 52 20 144/84 100 Mask 10 09/06/16 09:10 56 20 150/84 100 Mask 10 09/06/16 09:04 36.2 72 16 153/90 97 Mask 10 09/06/16 06:20 36.5 63 18 154/77 (102) 97 Room Air General: awake, alert, mild distress Head: Normocephalic, atraumatic ENT: PERRL, EOMI, no pharyngeal exudate, mucous membranes moist Chest: Clear to auscultation, on room air, no adventitious breath sounds Cardiac: Regular rate and rhythm, no murmur, no JVD, normal peripheral pulses, good capillary refill Abdominal: +Hypoactive bowel sounds, mildly distended, + surgical incisions intact with dermabond, + DAX drain in LLQ, bandages are C/D/I Extremities: Normal inspection, no peripheral edema or erythema, calfs nontender to palpation Psych: Normal mood and affect Neuro: AAO x 3, strength intact bilaterally and related 5/5, no motor deficits, speech is clear, no peripheral sensory deficits Assessment & Plan This is a 61 yo M with PMHx of osteoarthritis,lumbar fusion with nerve stimulator implant (no longer working as battery ) and chronic cholecystitis, cholelithiasis, calculus of gallbladder who underwent Laparoscopic Cholecystectomy by Dr. Minor on 09/06/16. - Analgesia and bowel regimen per primary service - Cont cefuroxime for antibiotic coverage - PT/OT - Pt anticipated discharge she home tomorrow - Patient has not yet tried a diet, regular diet has been ordered per the primary team, he is requesting to try food. Will continue maintenance Lactated Ringers at 50mL/hr for now, can d/c if pt tolerating diet later today. Osteoarthritis -Meloxicam on hold DVT prophylaxis: TEDs, SCDs, heparin sq Q8H Disposition: Discharge per primary service
[2016-09-06] MEDS: CEFUROXIME IV 1,500 MG in DEXTROSE 5% 100ML 100 ML IV SCH ×2 (13:22→21:52)
[2016-09-06] MEDS: HYDROCODONE/ACETAMOPHEN 5/325MG TAB PO PRN (19:31)
[2016-09-06] MEDS: HEPARIN SOD 5000 UNIT/0.5 ML CARP SQ SCH (21:52)
[2016-09-07 04:10] VITALS: BP 103/57; PULSE 79; TEMP 36.4; O2SAT 91
[2016-09-07] MEDS ORDERED: HYDR-5688 PO (05:08)
--- NOTE | 2016-09-07 05:09 | Discharge Instructions ---
Discharge Instructions Date of Service Sep 07, 2016. Admission Reason for Admission: Calculus Of Gallbladder W/Chronic Cholecystitis W/ Discharge Discharge Diagnosis / Problem: chronic cholecystitis Discharge Goals Goal(s): Decrease discomfort, Improve function, Improve disease control Activity Recommendations Activity Limitations: as noted below Lifting Limitations: no more than 25 pounds Exercise/Sports Limitations: until after follow-up appointment May Resume Sexual Activity: when tolerated Shower/Bathe: tomorrow Driving or Machine Use: resume 3 days after discharge SPECIAL CARE INSTRUCTIONS: * Cover incisions and change daily for comfort/drainage. * Empty drain 2-3 times per day and record. * May use ibuprofen for pain as tolerated. * Expect some swelling and bruising. Call your doctor if: * Temperature above 101 degrees * Pain not relieved by pain medicine ordered * There is increased drainage or redness from any incision * You have any unanswered questions or concerns [phone]. FOLLOW UP VISIT: If not already scheduled, please call the office for a follow-up visit. for next 09/11- Drain removal OFFICE PHONE NUMBER: Dr. Minor Office . Current Hospital Diet Patient's current hospital diet: Regular Diet Discharge Diet Recommended Diet: Regular Diet Procedures Procedures Performed: Laparoscopic Cholecystectomy Pending Studies Studies pending at discharge: no Medical Emergencies . Who to Call and When: Medical Emergencies: If at any time you feel your situation is an emergency, please call 911 immediately. . Non-Emergent Contact Non-Emergency issues call your: Primary Care Provider, Surgeon . "Provider Documentation" section prepared by Toby Minor. . VTE Core Measure Inpt VTE Proph given/why not?: SCD's
[2016-09-07] MEDS: LACTATED RINGER'S 1000ML 1,000 ML IV SCH (05:35)
[2016-09-07] MEDS: CEFUROXIME IV 1,500 MG in DEXTROSE 5% 100ML 100 ML IV SCH (05:35)
[2016-09-07] MEDS: HYDROCODONE/ACETAMOPHEN 5/325MG TAB PO PRN (05:37)
[2016-09-07] MEDS: HEPARIN SOD 5000 UNIT/0.5 ML CARP SQ SCH (05:39)
--- NOTE | 2016-09-07 06:07 | Surgery Progress Note ---
Surgery Progress Note Date of Service Sep 07, 2016. Subjective + feeling well, No nausea, No vomiting wants to go home Objective Vital Signs: Date Time Temp Pulse Resp B/P (MAP) Pulse Ox O2 Delivery O2 Flow Rate FiO2 09/07/16 04:10 36.4 79 16 103/57 (72) 91 Room Air 09/07/16 00:10 Room Air 09/06/16 23:24 36.7 72 16 113/67 (82) 92 Room Air 09/06/16 19:30 Room Air 09/06/16 19:10 36.9 87 18 138/82 (100) 94 Room Air 09/06/16 15:45 Room Air 09/06/16 15:36 36.7 69 18 125/81 (96) 93 Room Air 09/06/16 13:30 36.5 75 16 128/85 (99) 96 2.0 09/06/16 12:33 75 16 120/70 (87) 96 2.0 09/06/16 11:27 72 16 117/79 (92) 94 2.0 09/06/16 10:52 51 16 129/76 (93) 97 2.0 09/06/16 10:35 95 Nasal Cannula 1.0 09/06/16 10:20 95 Nasal Cannula 1.0 09/06/16 10:00 50 16 127/81 99 Nasal Cannula 2 09/06/16 09:50 36.0 51 19 129/78 94 Nasal Cannula 2 09/06/16 09:40 51 18 130/80 95 Nasal Cannula 2 09/06/16 09:30 58 20 135/75 95 Nasal Cannula 2 09/06/16 09:20 52 20 144/84 100 Mask 10 09/06/16 09:10 56 20 150/84 100 Mask 10 09/06/16 09:04 36.2 72 16 153/90 97 Mask 10 09/06/16 06:20 36.5 63 18 154/77 (102) 97 Room Air General Appearance: no apparent distress Respiratory/Chest: no respiratory distress Abdomen: soft Incision(s): intact, drainage (DAX drain in place) Assessment & Plan 09/07/16- s/p lap selena with drain pod#1- pt also has stent in CBD from prior ERCP d/c home see in office next week- drain removal
[2016-09-07 07:14] VITALS: BP 103/57; PULSE 79; TEMP 36.4; O2SAT 91
[2016-09-07] MEDS ORDERED: PANTOprazole SOD 40 MG TAB PO SCH (09:00)
[2016-09-07] MEDS ORDERED: MELOXICAM 7.5 MG TAB PO SCH (09:00)
--- NOTE | 2016-09-07 10:41 | Discharge Summary ---
Discharge Summary Date of Service Sep 07, 2016. Admission Date/Reason Sep 06, 2016 at 09:01 Calculus Of Gallbladder W/Chronic Cholecystitis W/. Discharge Date/Disposition Sep 07, 2016 Home Diagnosis Principal Diagnosis: Cholelithiasis, chronic cholecystitis Procedure(s) Performed Laparoscopic cholecystectomy Consultations [facility] for routine medical management Medication Reconciliation New Medications: Hydrocodone/Acetaminophen 5MG/325MG ([place] 5MG/325MG) Tab 1-2 TABLET PO q 6 hrs PRN for Pain, #30 TAB PRN PAIN Continued Medications: Apixaban (Eliquis) 5 Mg Tab 5 MG PO BID, TAB WILL HOLD ONE DAY PRIOR Meloxicam (Mobic) 7.5 Mg Tab 7.5 MG PO DAILY, TAB Omeprazole (Prilosec) 40 Mg Cap 40 MG PO QAM, CAP Admission Physical Exam As per Admitting History & Physical. Hospital Course 61 y/o male with cholelithiasis/chronic cholecystitis brought in through [facility] for laparoscopic cholecystectomy. The procedure was well tolerated and he was transferred to surgical floor for overnight observation. In the morning he was tolerating regular diet and oral analgesics. Abdomen was soft and Incisions were dry. He was stable for discharge. Discharge Instructions Discharge home. Follow-up with Dr. Minor in 2 weeks. Please refer to the electronic Patient Visit Report (Discharge Instructions) for additional information.
--- NOTE | 2016-09-08 11:00 | [facility] Operative Report ---
Operative Report Operative Date Sep 08, 2016. Pre-Operative Diagnosis chronic cholecystitis, cholelithiasis, calculus of gallbladder Post-Operative Diagnosis chronic cholecystitis Procedure(s) Performed lap selena Surgeon Dr. Toby Minor Blood Bank Specialist Surgeon(s) Jenn Segura PA-C, Sunday Baron PA-C Estimated Blood Loss 10ml Findings chronic adhesions to gb and area of portahepatis Specimens A. Gallbladder Drains #[id number] DAX to subhepatic space Anesthesia gen Complication(s) None Disposition Recovery Room / PACU Description of Procedure Patient was brought in the operating room placed in the operative room table in the supine position and his abdomen was prepped and draped in usual fashion. Pneumatic stockings orogastric tube were placed. Using half percent plain Marcaine and all incisions were anesthetized. Cystoscopy was initially made in the abdomen just above the umbilicus carried dissection down to the fascia placing a varies needle producing a pneumoperitoneum. An 11 mm port was placed this level and then under visualization 35 mm ports placed one cephalad to laterally. The bladder was grasped and retracted. There were adhesions to the gallbladder consistent with chronic inflammation. Dissection was carried at the tacho hepatis identifying the cystic duct and cystic artery these were clipped and transected. Because of the inflammation and prior ERCP with stent placement I did place a 15 round Alonso-Lyles drain through the lateral 5 mm port. It was secured using a 3-0 nylon suture. The gallbladder was then placed in an Endobag and removed through the umbilical site. Appropriate irrigation and hemostasis all ports removed the fascia at the umbilicus closed using interrupted 0 Vicryl suture. Change tissue reapproximated using 20 plain catgut suture. Incision was then closed using 4-0 nylon suture at the umbilicus. 5-0 Monocryl was used for the other sites with Dermabond. Dressings were applied and patient transferred to recovery room in stable condition. I attest to the content of the Intraoperative Record and any orders documented therein. Any exceptions are noted below.
== END 2016-09-07 07:50 | disposition home or self-care (01) ==
LOC: C.ACU 05:47 → C.MSW 09:01 → ENRESERV 09:37
PROVIDERS: ADMIT Surgery; ATTEND Surgery
DX: K80.12 Calculus of gallbladder with acute and chronic cholecystitis without obstruction (principal); I26.99 Other pulmonary embolism without acute cor pulmonale; Z87.891 Personal history of nicotine dependence; Z79.01 Long term (current) use of anticoagulants; Z79.899 Other long term (current) drug therapy